=== PATIENT | female | born 1955 | race Caucasian/White ===

== ENCOUNTER 2024-04-23 11:03 | Inpatient (IN) | payer MEDICARE, SELFPAY ==
[2024-04-23] VITALS (27 sets, daily range): BP systolic 93–177; BP diastolic 11–100; PULSE 63–87; RESP 10–21; TEMP 36.4–36.9; O2SAT 95–100; BMI 22.8
--- NOTE | ~2024-04-23 | CT_ITS ---
EXAMINATION: CT brain wo con DATE: 04/23/2024 12:48 INDICATION: Head injury. Loss of consciousness. TECHNIQUE: Computed tomography (CT) of the head was performed without intravenous contrast. The mA wa s adjusted according to patient size. Iterative reconstruction technique was employed. The dose-lengt h product was 605.33 mGy-cm. COMPARISON: None FINDINGS: There is no intracranial hemorrhage, acute infarction, or abnormal intracranial mass lesion . The ventricles are normal in size. The orbits are normal. There is mucosal thickening in the parana branden sinuses. The mastoid air cells are normal. IMPRESSION: 1. Normal brain. Reviewed, dictated and finalized at location A. UCT DEVELOPMENT WORKER IMPRESSION: 1. Normal brain.
--- NOTE | ~2024-04-23 | XR_ITS ---
Clinical Indication: Cough PA and lateral views of the chest: Comparison: None Findings: The lungs are clear, without evidence of focal consolidation or pleural effusion. Cardiome diastinal silhouette is within normal limits. Bones and soft tissues are unremarkable. Impression: Normal chest. Reviewed, dictated and finalized at [facility]. TING PLATE SETTER Impression: Normal chest.
--- NOTE | ~2024-04-23 | CT_ITS ---
[facility] DATE: 04/23/2024 12:48 INDICATION: Chest and abdominal and spine injury. Fall. TECHNIQUE: Computed tomography (CT) of the chest, abdomen, pelvis, thoracic spine, and lumbar spine w as performed with 100 mL Omnipaque 350 intravenous contrast. Automated exposure control and iterative reconstruction technique were employed. The dose-length product was 414.07 mGy-cm. COMPARISON: Chest CT 12/03/2013 FINDINGS: CT CHEST: There is mild atelectasis bilaterally. No pleural effusion. The heart size is normal. No pe ricardial effusion. CT ABDOMEN AND PELVIS: The liver, gallbladder, spleen, pancreas, adrenal glands, and right kidney are normal. There is a 4 mm cyst in left kidney. There are no dilated loops of bowel. The appendix is no rmal. There are no pathologically enlarged lymph nodes. There is no free intraperitoneal fluid. CT THORACIC SPINE: There is 4 degrees dextrocurvature of thoracic spine. There is mild chronic anteri or wedging of T5-T8 vertebral bodies. There is moderately decreased disc height from T2-T3 through T6 -T7 and mildly decreased disc height at T7-T8 and T8-T9. There is multilevel facet joint osteoarthrit is, severe on the left from T1-T2 through T3-T4 and on the right at T4-T5. On the right, there is mil d neural foraminal stenosis at T4-T5. On the left, there is mild neural foraminal stenosis at T1-T2, T2-T3, and T3-T4. There is mild central canal stenosis at T6-T7 and T11-T12. CT LUMBAR SPINE: There is 2 mm retrolisthesis of L2 on L3. Vertebral body heights are normal. There i s moderately decreased disc height at L2-L3, mildly decreased disc height at L4-L5, and severely decr eased disc height at L5-S1. The following disc levels are specifically discussed: L1-L2: The disc does not extend beyond the endplate margin. There is moderate bilateral facet joint o steoarthritis. There is no neural foraminal stenosis. There is no central canal stenosis. L2-L3: The disc is bulging. There is mild bilateral facet joint osteoarthritis. There is mild bilater al neural foraminal stenosis. There is mild central canal stenosis. L3-L4: The disc is bulging. There is moderate right and severe left facet joint osteoarthritis. There is mild bilateral neural foraminal stenosis. There is mild central canal stenosis. L4-L5: The disc is bulging. There is severe bilateral facet joint osteoarthritis. There is mild bilat eral neural foraminal stenosis. There is mild central canal stenosis. L5-S1: The disc is bulging. There is severe bilateral facet joint osteoarthritis. There is mild bilat eral neural foraminal stenosis. There is mild central canal stenosis. IMPRESSION: 1. No posttraumatic findings. Reviewed, dictated and finalized at location A. IRATORY TECHNICIAN
--- NOTE | ~2024-04-23 | XR_ITS ---
Left wrist Technique: PA, oblique, lateral, and ulnar deviation views were obtained. Clinical History: Pain Findings: No acute fracture or dislocation is seen. Osseous alignment is anatomic. There is mild dege nerative change of the first CMC joint. Soft tissues are unremarkable. 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 Reviewed, dictated and finalized at [facility]. MAKER Impression: Mild degenerative change of the first CMC joint.
--- NOTE | ~2024-04-23 | XR_ITS ---
Right elbow Technique: AP, oblique, and lateral views were obtained. Clinical History: Pain Findings: No acute fracture or dislocation is seen. Osseous alignment is anatomic. Joint spaces are p reserved. There is no displacement of the fat pads, and soft tissues are unremarkable. Impression: Unremarkable radiographs. Reviewed, dictated and finalized at [facility]. CHELL OPERATOR Impression: Unremarkable radiographs.
--- NOTE | ~2024-04-23 | XR_ITS ---
Right wrist Technique: PA, oblique, lateral, and ulnar deviation views were obtained. Clinical History: Pain Findings: No acute fracture or dislocation is seen. Osseous alignment is anatomic. There is mild dege nerative change of the first CMC joint. Soft tissues are unremarkable. 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 Reviewed, dictated and finalized at [facility]. BRAZER Impression: Mild degenerative change of the first CMC joint.
--- NOTE | ~2024-04-23 | CT_ITS ---
EXAMINATION: CT cervical spine wo con DATE: 04/23/2024 12:48 INDICATION: Head injury. Neck pain. TECHNIQUE: Computed tomography (CT) of the cervical spine was performed without intravenous contrast. Automated exposure control and iterative reconstruction technique were employed. The dose-length pro duct was 127.47 mGy-cm. COMPARISON: None FINDINGS: There is kyphosis of cervical spine. Vertebral body heights are normal. There is severely d ecreased disc height from C4-C5 through C6-C7. The following disc levels are specifically discussed: C2-C3: There is no uncovertebral joint osteoarthritis. There is severe bilateral facet joint osteoart hritis. There is mild left neural foraminal stenosis. There is no central canal stenosis. C3-C4: There is moderate left uncovertebral joint osteoarthritis. There is moderate right and severe left facet joint osteoarthritis. There is mild left neural foraminal stenosis. There is no central ca nal stenosis. C4-C5: There is severe right and mild left uncovertebral joint osteoarthritis. There is severe bilate ral facet joint osteoarthritis. There is mild bilateral neural foraminal stenosis. There is moderate central canal stenosis. C5-C6: There is severe bilateral uncovertebral joint osteoarthritis. There is mild bilateral facet joshua int osteoarthritis. There is mild bilateral neural foraminal stenosis. There is mild central canal st enosis. C6-C7: There is severe bilateral uncovertebral joint osteoarthritis. There is moderate bilateral face t joint osteoarthritis. There is mild bilateral neural foraminal stenosis. There is moderate central canal stenosis. C7-T1: There is no uncovertebral joint osteoarthritis. There is severe bilateral facet joint osteoart hritis. There is mild bilateral neural foraminal stenosis. There is no central canal stenosis. IMPRESSION: 1. No fracture. 2. Severe cervical spondylosis. Reviewed, dictated and finalized at location A. [employer]
--- NOTE | 2024-04-23 11:24 | ECG_ITS ---
Test Date: 2024-04-23 11:53:59 Measurements Intervals [place] Rate: 65 P: 23 UT: 144 QRS: 33 QRSD: 94 T: 43 QT: 380 QTc: 398 Interpretive Statements SINUS RHYTHM CANNOT R/O SEPTAL INFARCT, AGE INDETERMINATE BORDERLINE ST ABNORMALITY- LAT/HIGH LAT LEADS ABNORMAL ECG No previous ECG available for comparison Electronically Signed On 04-23-2024 13:29:42 ELECTRICAL PANEL BUILDER by Fernando Aggarwal D.O.
--- NOTE | 2024-04-23 11:45 | ED.SYNCOPE ---
HPI - Syncope General Chief Complaint: Arrhythmia/Palpitations <Xin Donaldson APRN - Last Filed: 04/23/24 11:52> Stated Complaint: afib <Xin Donaldson APRN - Last Filed: 04/23/24 11:52> Time Seen by Provider: 04/23/24 11:30 <Xin Donaldson APRN - Last Filed: 04/23/24 11:52> Focused HPI: Patient is a 68-year-old female who presents to the ER after sustaining a fall while on a trip to [place]. She reports she is on Xarelto due to history of AFib. Patient reports she arrived in [place] and was not feeling well with symptoms including headache and cough. She reports on Sunday 3 days ago, she got into the shower, had diarrhea, and experienced loss of consciousness. Patient is unsure how long she was altered. She reports her found her in the shower and had her evaluated by a doctor, where she lost consciousness again so she was sent to an ER in [place]. Patient reports she was diagnosed with influenza. She denies any alcohol or illicit drug use down in [place]. Patient brought her medical records with her to this ER visit although they are transcribed in Greenlandic. Patient endorses right elbow pain right arm pain and generalized body aches. She also endorses bruising all over her body including on to the left side of her face. Patient denies any recent fevers, one-sided weakness/tingling/numbness, vaginal or rectal bleeding. She does endorse altered mental status and difficulty with her memory since Sunday. Patient also endorses decreased coordination on her right extremity. She reports ?I have pain everywhere.? GENERAL: Ill-appearing, poorly-nourished, and in no acute distress. HEAD: Normocephalic, ecchymosis to left side of patient's face. CHEST: Clear to auscultation. ?No respiratory distress. HEART: Regular rate and rhythm.? NEURO: ?Alert and oriented x3. Cranial nerves intact, although increased weakness on right arm with neuro checks. ABD: + BS, no tenderness with palpation Patient screened in triage and initial orders placed.? ?Additional care and disposition to be based upon?diagnostic testing and treatment. <Xin Donaldson APRN - Last Filed: 04/23/24 11:52> Related Data Home Medications: Home Medications ?Medication ?Instructions ?Recorded ?Confirmed ?Last Taken ?Type rivaroxaban 20 mg tablet (Xarelto) mg 04/23/24 Unknown History <Xin Donaldson APRN - Last Filed: 04/23/24 11:52> Allergies/Adverse Reactions: Allergies Allergy/AdvReac Type Severity Reaction Status Date / Time No Known Allergies Allergy Unverified 04/23/24 11:47 <Xin Donaldson APRN - Last Filed: 04/23/24 11:52> Exam Narrative: APPEARANCE: No apparent distress. Head: Old bruising over the left orbit EYES: EOMI, NOSE: Atraumatic NECK: Trachea midline RESPIRATORY: No increased rate of breathing CTAB CARDIOVASCULAR: RRR, no peripheral edema ABDOMINAL: Non-distended soft nontender MUSCULOSKELETAl: No obvious deformities NEURO: Cranial nerves 2-12 grossly intact. Sensation light touch, motor function cerebellar function intact for 4 extremities. Patient is globally weak SKIN:: Warm, dry. Normal color PSYCHIATRIC: Normal affect <Azael Scott MD - Last Filed: 04/23/24 16:37> Course Vital Signs Vital signs: Vital Signs Temperature 97.6 F 04/23/24 11:12 Pulse Rate 87 04/23/24 11:12 Respiratory Rate 16 04/23/24 11:12 Blood Pressure 167/82 H 04/23/24 11:12 Pulse Oximetry 98 04/23/24 11:12 Temperature 97.6 F 04/23/24 11:12 Pulse Rate 78 04/23/24 15:31 Respiratory Rate 15 04/23/24 15:31 Blood Pressure 171/94 H 04/23/24 15:31 Pulse Oximetry 100 04/23/24 15:31 <Xin Donaldson APRN - Last Filed: 04/23/24 11:52> Vital Signs Temperature 97.6 F 04/23/24 11:12 Pulse Rate 87 04/23/24 11:12 Respiratory Rate 16 04/23/24 11:12 Blood Pressure 167/82 H 04/23/24 11:12 Pulse Oximetry 98 04/23/24 11:12 Temperature 97.6 F 04/23/24 11:12 Pulse Rate 78 04/23/24 15:31 Respiratory Rate 15 04/23/24 15:31 Blood Pressure 171/94 H 04/23/24 15:31 Pulse Oximetry 100 04/23/24 15:31 <Azael Scott MD - Last Filed: 04/23/24 16:37> MDM - Syncope MDM Narrative Medical decision making narrative: -Course: 68-year-old female presenting 3 days after a fall that she sustained in [place]. Physical exam not show any traumatic injuries. She is globally weak with an unsteady gait. Broad workup obtained which was unremarkable outside of positive of influenza infection. Patient was given fluid resuscitation and NSAIDs for her symptoms. After the patient was fluid resuscitated we attempted to ambulate patient and when she stood up she became pale and lightheaded. Patient will be continued fluid resuscitation and PT OT evaluation. -DDX includes but is not limited to: Influenza, dehydration, pneumonia, sepsis, acute kidney injury -Independent interpretation of studies: Independent EKG interpretation: Rhythm [sinus], Rate [65], [place] -[normal], MI -[normal], QRS [narrow], QTC [normal], T waves -[negative for concerning inversions], ST Segments - [Negative for concerning elevations] Final interpretations: [Normal Sinus Rhythm] <Azael Scott MD - Last Filed: 04/23/24 16:37> Lab Data Result diagrams: 04/23/24 12:01 04/23/24 12:01 <Xin Donaldson APRN - Last Filed: 04/23/24 11:52> Labs: Lab Results 04/23/24 04/23/24 Range/Units 12:01 12:19 WBC 3.7 L (4.5-10.0) K/mm3 RBC 4.87 (4.2-5.4) M/mm3 Hgb 15.1 H (12.0-15.0) g/dL Hct 44.9 (37.0-47.0) % MCV 92.2 (80-100) fl MCH 31.0 (26-34) pg MCHC 33.6 (32-36) g/dl RDW 13.2 (11.5-14.5) % Plt Count 192 (150-375) k/mm3 MPV 11.3 H (7.4-10.4) fl Immature Gran % (Auto) 0.3 (0-0.5) % Neut % (Auto) 31.3 L (45.5-73.1) % Lymph % (Auto) 58.9 H (18.3-44.2) % [place] % (Auto) 8.7 H (2.6-8.5) % Eos % (Auto) 0.3 (0-4.4) % Baso % (Auto) 0.5 (0.2-1.2) % Lymph # (Auto) 2.16 (0.9-3.2) K/mm3 [place] # (Auto) 0.3 (0.1-0.6) K/mm3 Eos # (Auto) 0.0 (0-0.3) K/mm3 Baso # (Auto) 0.0 (0.0-0.1) K/mm3 Abs Immat Gran (auto) 0.01 (0.00-0.031) K/mm3 Absolute Neuts (auto) 1.2 L (1.3-6.7) K/mm3 Absolute Nucleated RBC 0.000 (0.0-0.012) K/mm3 Nucleated RBC % 0.0 (0.0-0.2) % Atypical Lymphocytes Present Platelet Estimate Adequate (Adequate) Schistocytes None seen PT 13.1 (11.1-14.7) Seconds INR 1.0 APTT 27.4 (22.3-36.8) Seconds Sodium 134 L (137-145) mmol/L Potassium 3.7 (3.4-5.0) mmol/L Chloride 98 (98-107) mmol/L Carbon Dioxide 28 (22-30) mmol/L Anion Gap 8 (4-12) mmol/L BUN 23 H (7-17) mg/dL Creatinine 0.62 L (0.7-1.0) mg/dL Estim Creat Clear Calc Not Reportable Estimated GFR > 60 (59 - ) Glucose 106 (65-110) mg/dL Lactic Acid 1.1 (0.7-2.0) mmol/L Calcium 9.3 (8.4-10.2) mg/dL Total Bilirubin 0.5 (0.2-1.3) mg/dL AST 32 (14-36) U/L ALT 38 H (6-35) U/L Alkaline Phosphatase 79 (38-126) U/L Total Creatine Kinase 52 (30-135) U/L Troponin I < 0.012 (0.000-0.034) ng/mL Total Protein 7.0 (6.3-8.2) g/dL Albumin 4.0 (3.5-5.1) g/dL TSH 1.070 (0.465-4.680) uIU/mL Urine Color Yellow (Yellow) Urine Appearance Clear (Clear) Urine pH 6.5 (5.0-9.0) Ur Specific [place] 1.021 (1.001-1.035) Urine Protein Trace (Negative) mg/dL Urine Glucose (UA) Negative (Negative) mg/dL Urine Ketones Trace H (Negative) mg/dL Ur Blood (Man) Negative (Negative) Urine Nitrate Negative (Negative) Urine Bilirubin Negative (Negative) Urine Urobilinogen 1.0 (<2.0) mg/dL Leukocyte Esterase Rfl Negative (Negative) JOSE/UL Urine RBC 0-2 (0-2) /hpf Urine WBC 0-5 (0-3) /hpf Ur Squamous Epith Cells None seen (Few) /hpf Urine Bacteria None seen /hpf Urine Casts 0-2 Urine Opiates Screen Negative (Negative) Urine Methadone Screen Negative (Negative) Ur Barbiturates Screen Negative (Negative) Ur Phencyclidine Scrn Negative (Negative) Ur Amphetamine Screen Negative (Negative) U Benzodiazepines Scrn Negative (Negative) Urine Cocaine Screen Negative (Negative) U Cannabinoids Screen Negative (Negative) Ethyl Alcohol < 10 (<10) mg/dL Influenza A (RT-PCR) Positive A (Negative) Influenza B (RT-PCR) Negative (Negative) RSV (RT-PCR) Negative (Negative) SARS-CoV-2 RNA (RT-PCR) Negative (Negative) Blood Type O Positive Antibody Screen Negative <Xin Donaldson, CONTENT DEVELOPMENT SPECIALIST - Last Filed: 04/23/24 11:52> Lab Results 04/23/24 04/23/24 Range/Units 12:01 12:19 WBC 3.7 L (4.5-10.0) K/mm3 RBC 4.87 (4.2-5.4) M/mm3 Hgb 15.1 H (12.0-15.0) g/dL Hct 44.9 (37.0-47.0) % MCV 92.2 (80-100) fl MCH 31.0 (26-34) pg MCHC 33.6 (32-36) g/dl RDW 13.2 (11.5-14.5) % Plt Count 192 (150-375) k/mm3 MPV 11.3 H (7.4-10.4) fl Immature Gran % (Auto) 0.3 (0-0.5) % Neut % (Auto) 31.3 L (45.5-73.1) % Lymph % (Auto) 58.9 H (18.3-44.2) % [place] % (Auto) 8.7 H (2.6-8.5) % Eos % (Auto) 0.3 (0-4.4) % Baso % (Auto) 0.5 (0.2-1.2) % Lymph # (Auto) 2.16 (0.9-3.2) K/mm3 [place] # (Auto) 0.3 (0.1-0.6) K/mm3 Eos # (Auto) 0.0 (0-0.3) K/mm3 Baso # (Auto) 0.0 (0.0-0.1) K/mm3 Abs Immat Gran (auto) 0.01 (0.00-0.031) K/mm3 Absolute Neuts (auto) 1.2 L (1.3-6.7) K/mm3 Absolute Nucleated RBC 0.000 (0.0-0.012) K/mm3 Nucleated RBC % 0.0 (0.0-0.2) % Atypical Lymphocytes Present Platelet Estimate Adequate (Adequate) Schistocytes None seen PT 13.1 (11.1-14.7) Seconds INR 1.0 APTT 27.4 (22.3-36.8) Seconds Sodium 134 L (137-145) mmol/L Potassium 3.7 (3.4-5.0) mmol/L Chloride 98 (98-107) mmol/L Carbon Dioxide 28 (22-30) mmol/L Anion Gap 8 (4-12) mmol/L BUN 23 H (7-17) mg/dL Creatinine 0.62 L (0.7-1.0) mg/dL Estim Creat Clear Calc Not Reportable Estimated GFR > 60 (59 - ) Glucose 106 (65-110) mg/dL Lactic Acid 1.1 (0.7-2.0) mmol/L Calcium 9.3 (8.4-10.2) mg/dL Total Bilirubin 0.5 (0.2-1.3) mg/dL AST 32 (14-36) U/L ALT 38 H (6-35) U/L Alkaline Phosphatase 79 (38-126) U/L Total Creatine Kinase 52 (30-135) U/L Troponin I < 0.012 (0.000-0.034) ng/mL Total Protein 7.0 (6.3-8.2) g/dL Albumin 4.0 (3.5-5.1) g/dL TSH 1.070 (0.465-4.680) uIU/mL Urine Color Yellow (Yellow) Urine Appearance Clear (Clear) Urine pH 6.5 (5.0-9.0) Ur Specific [place] 1.021 (1.001-1.035) Urine Protein Trace (Negative) mg/dL Urine Glucose (UA) Negative (Negative) mg/dL Urine Ketones Trace H (Negative) mg/dL Ur Blood (Man) Negative (Negative) Urine Nitrate Negative (Negative) Urine Bilirubin Negative (Negative) Urine Urobilinogen 1.0 (<2.0) mg/dL Leukocyte Esterase Rfl Negative (Negative) JOSE/UL Urine RBC 0-2 (0-2) /hpf Urine WBC 0-5 (0-3) /hpf Ur Squamous Epith Cells None seen (Few) /hpf Urine Bacteria None seen /hpf Urine Casts 0-2 Urine Opiates Screen Negative (Negative) Urine Methadone Screen Negative (Negative) Ur Barbiturates Screen Negative (Negative) Ur Phencyclidine Scrn Negative (Negative) Ur Amphetamine Screen Negative (Negative) U Benzodiazepines Scrn Negative (Negative) Urine Cocaine Screen Negative (Negative) U Cannabinoids Screen Negative (Negative) Ethyl Alcohol < 10 (<10) mg/dL Influenza A (RT-PCR) Positive A (Negative) Influenza B (RT-PCR) Negative (Negative) RSV (RT-PCR) Negative (Negative) SARS-CoV-2 RNA (RT-PCR) Negative (Negative) Blood Type O Positive Antibody Screen Negative <Azael Scott MD - Last Filed: 04/23/24 16:37> Discharge Plan Discharge Clinical Impression: Influenza, Unsteady gait <Xin Donaldson APRN - Last Filed: 04/23/24 11:52> Patient Disposition: Still a Patient <Xin Donaldson APRN - Last Filed: 04/23/24 11:52> Condition: Stable <Xin Donaldson APRN - Last Filed: 04/23/24 11:52> Patient Language: Turkmen <Xin Donaldson APRN - Last Filed: 04/23/24 11:52> Prescriptions: No Action Xarelto 20 mg tablet <Xin Donaldson APRN - Last Filed: 04/23/24 11:52> Follow-up/Referrals: PHYSICIAN,RN LACTATION CONSULTANT [Non-Staff] - <Xin Donaldson APRN - Last Filed: 04/23/24 11:52>
[2024-04-23 12:08] LABS: Basophils Percent Auto 0.5 % (0.2-1.2); Eosinophils Percent Auto 0.3 % (0-4.4); Hematocrit 44.9 % (37.0-47.0); Hemoglobin 15.1 g/dL (12.0-15.0); Immature Granulocyte Absolute 0.01 K/mm3 (0.00-0.031); Immature Granulocyte Percent A 0.3 % (0-0.5); Lymphocytes Absolute Auto 2.16 K/mm3 (0.9-3.2); Lymphocytes Percent Auto 58.9 % (18.3-44.2); Mean Corpuscular HGB Conc 33.6 g/dl (32-36); Mean Corpuscular Volume 92.2 fl (80-100); Mean Platelet Volume 11.3 fl (7.4-10.4); Monocytes Absolute Auto 0.3 K/mm3 (0.1-0.6); Monocytes Percent Auto 8.7 % (2.6-8.5); Neutrophils Absolute Auto 1.2 K/mm3 (1.3-6.7); Neutrophils Percent Auto 31.3 % (45.5-73.1); Platelet Count Result 192 k/mm3 (150-375); Red Blood Count 4.87 M/mm3 (4.2-5.4); Red Cell Distribution Width 13.2 % (11.5-14.5); White Blood Count 3.7 K/mm3 (4.5-10.0)
[2024-04-23 12:19] LABS: Alanine Aminotransferase 38 U/L (6-35); Alkaline Phosphatase 79 U/L (38-126); Anion Gap 8 mmol/L (4-12); Aspartate Amino Transferase 32 U/L (14-36); Bilirubin,Total 0.5 mg/dL (0.2-1.3); Blood Urea Nitrogen 23 mg/dL (7-17); Calcium 9.3 mg/dL (8.4-10.2); Carbon Dioxide 28 mmol/L (22-30); Chloride 98 mmol/L (98-107); Creatine Kinase 52 U/L (30-135); Estimated Glomerular Filt Rate > 60; Ethanol < 10 mg/dL (<10); Glucose 106 mg/dL (65-110); Lactic Acid Reflex 1.1 mmol/L (0.7-2.0); Potassium 3.7 mmol/L (3.4-5.0); Prothrombin Time 13.1 Seconds (11.1-14.7); Sodium 134 mmol/L (137-145)
[2024-04-23 12:20] LABS: Partial Thromboplastin Time 27.4 Seconds (22.3-36.8)
[2024-04-23 12:31] LABS: Troponin I < 0.012 ng/mL (0.000-0.034)
[2024-04-23 12:37] LABS: Atypical Lymphocytes Present; Platelet Estimate Adequate (Adequate); Schistocytes None Seen
[2024-04-23 12:39] LABS: Add Urine Microscopic? YES; Appearance Urine Clear (Clear); Bacteria Urine None Seen /hpf; Bilirubin Urine Negative (Negative); Blood Urine Negative (Negative); Color Urine Yellow (Yellow); Glucose Urine UA Negative (Negative); Ketones Urine Trace mg/dL (Negative); Leukocyte Esterase Ur Negative LEU/UL (Negative); Nitrate Urine Negative (Negative); Non Pathogenic Casts 0-2; Protein Urine Trace mg/dL (Negative); RBC Urine 0-2 /hpf (0-2); Specific Grav Ur 1.021 (1.001-1.035); Squamous Epithelial Cell Urine None Seen /hpf (Few); WBC Urine 0-5 /hpf (0-3); pH Urine 6.5 (5.0-9.0)
--- OUTSIDE RECORDS SUMMARY | 2024-04-23 12:41 | XMS_ITS | Clinical Summary ---
Author Organization [facility] Address [address] [place] [address] Phone Care Team Providers Care Eastern Philosophy Professor Name Role Phone Danica Glasgow MD Primary Care Provider [phone] Social History Tobacco Use Types Packs/Day Years Used Date Smoking Tobacco: Never Assessed Comments No Sex and Gender Information Value Date Recorded Sex Assigned at Not on file Legal Sex Female 9:28 PM CDT Gender Identity Not on file Sexual Orientation Not on file Plan of Treatment Health Maintenance Due Date Last Done Comments Hepatitis C Virus (HCV) Screening 1955 Cologuard 10/02/2007 Pneumococcal Immunization (50+ years) (1 of 1 - PCV) 10/02/2007 Zoster Immunization (1 of 2) 10/02/2007 Immunochemical Fecal Occult Blood 08/17/2023 08/16/2022, 05/12/2020 Influenza Immunization (#1) 2023 01/22/2020, 1 03/26/2017 SARS-COV-2 Immunization ( season) 2023 02/15/2021, 06/25/2020, 05/21/2020 DEXA Bone Density 09/23/2025 09/24/2023, 01/17/2019 Mammogram 09/23/2025 09/24/2023, 0611/2022, 06/28/2021, Additional history exists Colonoscopy 01/06/2029 01/06/2019 Colorectal Cancer Screening 01/06/2029 Respiratory Syncytial Virus (RSV) Immunization (Adult) (1 - 1-dose 75+ series) 2032 01/06/2019 DTaP/Tdap/Td Immunization Discontinued 09/25/2019 TdaP Immunization Completed 09/25/2019 Hepatitis B Immunization Aged Out No longer eligible based on patient's age to complete this topic Meningococcal Immunization (ACWY) Aged Out No longer eligible based on patient's age to complete this topic Rotavirus Immunization Aged Out No lo nger eligible based on patient's age to complete this topic Procedures Procedure Name Priority Date/Time Associated Diagnosis Comments [facility] BONE DENSITOMETRY AXIAL SKELETON Routine 09/24/2023 9:40 AM CDT Asymptomatic menopausal state [facility] SCREENING BILATERAL DIGITAL W CAD W SANDIE Routine 09/24/2023 9:30 AM CDT Visit for screening mammogram from Last 3 Months or Most Recently Relevant to Health Maintenance Results * [facility] BONE DENSITOMETRY AXIAL SKELETON (09/24/2023 9:40 AM CDT) Anatomical Region Laterality Modality BODY N/A Computed Radiogr aphy 09/24/2023 5:06 PM CDT Impressions 09/24/2023 5:09 PM CDT IMPRESSION: Low Bone Mass. REFERENCE: Bone mineral density: T-Score: ?Normal (T-score above or = -1.0) ?Low bone mass ??(T-score between -1.0 and -2.5) replaces the previously used term osteopenia ?Osteoporosis (T-score = or below -2.5) Z-Score: ? Within the expected range for age (Z-score above -2.0) ? Below the expected range for age (Z-score is -2.0 or below) Please see below follow up recommendations. Medical evaluation for secondary causes of low bone mineral density may be appropriate. FRAX is a World Health Organization validated fracture risk assessment tool that calculates a person's 10 year probability of a major osteoporosis related fracture and hip fracture. ??According to the National Osteoporosis Foundation guidelines, postmenopausal women and men age 50 or older with low bone mass and a 10 year probability of a major osteoporosis related fracture = or greater than 20% or a 10 year probability of a hip fracture = or greater than 3% should be considered for pharmacological treatment for the prevention of osteoporosis. For further information, including treatment recommendations, please refer to the 2019 ISCD Official Positions (http://www.iscd.org) and the NOF's Clinician's Guide to Prevention and Treatment of Osteoporosis (http://www.nof.org/professionals/clinical-guidelines) Narrative 09/24/2023 5:09 PM CDT EXAM DESCRIPTION: [facility] BONE DENSITOMETRY AXIAL SKELETON REASON FOR STUDY: 67 y/o ?? year old ??F ??with given history of: ?? Asymptomatic menopausal state ? 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 Maximum height: ??64 ??inches ? Weight: ??121 ??pounds Risk factors: ??Postmenopausal COMPARISON: 01/17/2019 FINDINGS: AP LUMBAR SPINE L1-L4: Total BMD is 1.012 g/cm2 T-score is -1.5 This is decreased in comparison to prior exam which is statistically significant. LEFT HIP: Total BMD is 0.817 g/cm2 T-score is -1.5 This is decreased in comparison to prior exam which is statistically significant. Femoral neck BMD is 0.735 g/cm2 T-score is -2.2 ?? FRAX: 10 year risk for a major osteoporotic fracture is 11 %, 10 year risk for a hip fracture is 2.0 % THIS IS AN ELECTRONICALLY VERIFIED FINAL REPORT 09/24/2023 5:06 PM - Electronically signed by ??Alex Crow M.D. 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 LEFT HIP: Total BMD is 0.817 g/cm2 T-score is -1.5 This is decreased in comparison to prior exam which is statistically significant. Femoral neck BMD is 0.735 g/cm2 T-score is -2.2 FRAX: 10 year risk for a major osteoporotic fracture is 11 %, 10 year risk for a hip fracture is 2.0 % THIS IS AN ELECTRONICALLY VERIFIED FINAL REPORT 09/24/2023 5:06 PM - Electronically signed by Alex Crow M.D. MF: JOHN Report ID: [id number] Reading Location: [place] [id number] IMPRESSION: Low Bone Mass. REFERENCE: Bone mineral density: T-Score: Normal (T-score above or = -1.0) Low bone mass (T-score between -1.0 and -2.5) replaces the previously used term osteopenia Osteoporosis (T-score = or below -2.5) Z-Score: Within the expected range for age (Z-score above -2.0) Below the expected range for age (Z-score is -2.0 or below) Please see below follow up recommendations. Medical evaluation for secondary causes of low bone mineral density may be appropriate. FRAX is a World Health Organization validated fracture risk assessment tool that calculates a person's 10 year probability of a major osteoporosis related fracture and hip fracture. According to the National Osteoporosis Foundation guidelines, postmenopausal women and men age 50 or older with low bone mass and a 10 year probability of a major osteoporosis related fracture = or greater than 20% or a 10 year probability of a hip fracture = or greater than 3% should be considered for pharmacological treatment for the prevention of osteoporosis. For further information, including treatment recommendations, please refer to the 2019 ISCD Official Positions (http://www.iscd.org) and the NOF's Clinician's Guide to Prevention and Treatment of Osteoporosis (http://www.nof.org/professionals/clinical-guidelines) us Danica Glasgow MD IMG DEXA ORDERABLES Final Resul t * [facility] SCREENING BILATERAL DIGITAL W CAD W SANDIE (09/24/2023 9:30 AM CDT) Anatomical Region Laterality Modality breast Bilateral Mammography 09/24/2023 10:2 6 AM CDT Narrative 09/25/2023 10:58 AM CDT - [facility] SCREENING BILATERAL DIGITAL W CAD W SANDIE BILATERAL DIGITAL SCREENING MAMMOGRAM 3D/2D WITH CAD WITH MEDIOLATERAL OBLIQUE CRANIOCAUDAL: 09/24/2023 The study was acquired using digital technology and interpreted from soft copy. Current study was also evaluated with ICAD version 7.2. 2D digital mammographic views, as well as 3D digital tomosynthesis were performed in the CC and MLO projections. ?? CLINICAL: Routine screening. Patient has no complaints. No personal history of cancer. No family history of breast cancer. ?? COMPARISONS: Comparison is made to exams dated: ??09/14/2022, 06/28/2021, and 01/17/2019 [facility]. ?? BREAST TISSUE:There are scattered fibroglandular densities in both breasts. ?? FINDINGS: There are benign post operative findings in both breasts. ?? No significant masses, calcifications, or other findings are seen in either breast. ?? There has been no significant interval change. IMPRESSION: BI-RAD 2 BENIGN There is no mammographic evidence of malignancy. A 1 year screening mammogram is recommended. ?? A letter will be sent to the patient with these results. The patient will be entered into a reminder system with a target due date of 1 year for her next screening exam. Electronically signed by: Maribell Payan M.D. ? becky/cristiano:09/24/2023 22:31:01 ?? Hyperbaric Technologist(s): Mary ??RT Genaro(Whitley)(M), [facility] letter sent: Normal Exam ?? Reading location: [place] BI-RADS: 2 Benign Procedure Note Maribell Payan MD - 09/25/2023 - [facility] SCREENING BILATERAL DIGITAL W CAD W SANDIE BILATERAL DIGITAL SCREENING MAMMOGRAM 3D/2D WITH CAD WITH MEDIOLATERAL OBLIQUE CRANIOCAUDAL: 09/24/2023 The study was acquired using digital technology and interpreted from soft copy. Current study was also evaluated with ICAD version 7.2. 2D digital mammographic views, as well as 3D digital tomosynthesis were performed in the CC and MLO projections. CLINICAL: Routine screening. Patient has no complaints. No personal history of cancer. No family history of breast cancer. COMPARISONS: Comparison is made to exams dated: 09/14/2022, 06/28/2021, and 01/17/2019 [facility]. BREAST TISSUE:There are scattered fibroglandular densities in both breasts. FINDINGS: There are benign post operative findings in both breasts. No significant masses, calcifications, or other findings are seen in either breast. There has been no significant interval change. IMPRESSION: BI-RAD 2 BENIGN There is no mammographic evidence of malignancy. A 1 year screening mammogram is recommended. A letter will be sent to the patient with these results. The patient will be entered into a reminder system with a target due date of 1 year for her next screening exam. Electronically signed by: Maribell pena/cristiano:09/24/2023 22:31:01 Hyperbaric Technologist(s): RT Trice(R)(M), [facility] letter sent: Normal Exam Reading location: [place] BI-RADS: 2 Benign Natali Dunne APRN IMG MAMMO ORDERABLES Final Resu lt from Last 3 Months or Most Recently Relevant to Health Maintenance Insurance MEDICARE COMMERCIAL GENERIC Care Teams Eastern Philosophy Professor Relationship Specialty Start Date End Date Danica Glasgow MD [address] [place] [id number] PCP - General 08/22/17
--- OUTSIDE RECORDS SUMMARY | 2024-04-23 12:41 | XMS_ITS | Referral Summary ---
Author Organization [facility] Medical Office Building B Address [address] [place] [address] Care Team Providers Care Coil Maker Name Role Phone Danica Jackson MD Primary Care Provider Encounters Date Type Department Care Team Description 04/23/2024 Telephone [facility] Cardiology [address] [place] [address] Elvin Chris MD 02/11/2024 11:45 AM SESSIONS CLERK Office Visit [facility] Surgery [address] [place] [address] Elisha Abdul NP Trigger finger, left ring finger (Primary Dx); Tenosynovitis of hand from Last 3 Months Allergies No known active allergies Medications SUMAtriptan (IMITREX) 100 mg tablet take 1 tablet by oral route once with fluids as early as possible after the onset of a migraine attack;may repeat after 2 hours if headache returns, not to exceed 200mgin 24hrs 10 1 3 Active metoprolol XL (TOPROL-XL) 25 mg extended release tablet Take 1 tablet (25 mg total) by mouth daily 3 Active rivaroxaban (XARELTO) 20 mg tablet Take 1 tablet (20 mg total) by mouth daily with dinner Active magnesium oxide 400 mg magnesium capsule Take 400 mg by mouth daily 90 capsule 3 Active hydroCHLOROthiazi de (HYDRODIURIL) 25 mg tabletIndications :Benign essential hypertension Take 1 tablet (25 mg total) by mouth daily 90 tablet 3 4 Active lisinopriL (PRINIVIL,ZESTRIL ) 20 mg tablet Take 1 tablet (20 mg total) by mouth daily 90 tablet 3 4 Active oxyBUTYnin XL (DITROPAN-XL) 10 mg 24 hr tablet Take 1 tablet (10 mg total) by mouth daily 90 tablet 3 4 Active nystatin ointmentIndicatio ns:cutaneous candidiasis Apply topically 3 (three) times a day 30 g 1 4 Active triamcinolone (KENALOG) 0.1 % ointmentIndicatio ns:Skin Inflammation Apply topically 3 (three) times a day 30 g 1 4 Active fluconazole (DIFLUCAN) 200 mg tabletIndications :Skin/Soft Tissue Infection One by mouth every other day for three doses. 3 tablet 4 Active Active Problems Problem Noted Date Diagnosed Date Personal history of colonic polyps 09/19/2023 Encounter for screening colonoscopy 09/19/2023 Atrial fibrillation (CMS/HCC) 10/25/2022 Chronic anticoagulation 10/25/2022 Hypersomnolence 10/25/2022 Other fatigue 10/25/2022 MONTANO (dyspnea on exertion) 10/25/2022 Screen for colon cancer 11/11/2018 Overview (11/11/2018): Added automatically from request for surgery [id number] Benign essential hypertension 08/09/2016 Trigger middle finger of right hand 03/29/2016 Urinary incontinence 08/02/2013 Overview (06/22/2016): Incontinence of urine Assessment & Plan (08/21/2023 12:00 PM CDT): Oxybutynin will be refilled. Patient doing well. 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 Overview (06/22/2016): Hyperactivity of bladder Hypertension 09/25/2012 Overview (06/23/2016): Hypertension Osteoarthritis 09/25/2012 Overview (06/22/2016): Osteoarthritis Migraine 09/25/2012 Overview (06/22/2016): Migraines Anxiety 09/11/2012 Overview (06/23/2016): Anxiety Torn cartilage 08/02/2012 Overview (06/23/2016): Torn meniscus Social History Tobacco Use Types Packs/Day Years Used Date Smoking Tobacco: Never Smokeless Tobacco: Never Alcohol Use Standard Drinks/Week Comments Yes 0 (1 standard drink = 0.6 oz pur e alcohol) social PHQ-2 Answer Date Recorded PHQ-2 Total Score (If total score is 3 or more points, staff should administer the PHQ-9) 0 08/21/2023 Comments No Sex and Gender Information Value Date Recorded Sex Assigned at Not on file Legal Sex Female 5:25 PM SESSIONS CLERK Gender Identity Not on file Sexual Orientation Not on file Last Filed Vital Signs Vital Sign Reading Time Taken Comments Blood Pressure 142/80 10/26/2023 9:42 AM CDT Pulse 60 10/16/2023 10:12 AM CDT Temperature 37.1 ??C (98.8 ??F) 01/06/2019 9:05 AM CD T Respiratory Rate 16 10/16/2023 10:12 AM CDT Oxygen Saturation 96% 04/10/2023 1:16 PM SESSIONS CLERK Inhaled Oxygen Concentration - - Weight 55.8 kg (123 lb) 10/26/2023 9:42 AM CDT Height 161.3 cm (5' 3.5 ) 10/16/2023 10:12 AM CD T Body Mass Index 21.45 10/16/2023 10:12 AM CDT Plan of Treatment Upcoming Encounters Date Type Department Care Team (Late st Contact Info) Description 06/25/2024 9:25 AM CDT Hospital Encounter [facility] [address] [place] [address] China Lopez MD [address] [place] [address] [address] 06/25/2024 9:25 AM CDT - 06/25/2024 9:55 AM CDT Surgery [facility] [address] [place] [address] China Lopez MD [address] [place] [address] [place] [address] COLONOSCOPY Scheduled Procedures Name Priority Associated Diagnoses Date/Ti me COLONOSCOPY Personal history of colonic polyps Encounter for screening colonoscopy 06/25/2024 9:25 AM CDT Procedures Procedure Name Priority Date/Time Associated Diagnosis Comments PAP AND HPV, REFLEX TO HPV GENOTYPES Routine 08/21/2023 12:22 PM CDT Encounter for gynecological examination with Papanicolaou smear of cervix MAMMOGRAPHY Schedule Routine, Read Routine (OP Routine) 06/28/2021 DEXA AXIAL SKELETON BONE DENSITY 1 OR MORE SITES Schedule Routine, Read Routine (OP Routine) 01/17/2019 COLONOSCOPY 01/06/2019 8:02 AM CDT from Last 3 Months or Most Recently Relevant to Health Maintenance Results * (ABNORMAL) Pap and HPV, reflex to HPV Genotypes (08/21/2023 12:22 PM CDT) CLINICAL INFORMATION: [facility] Comment:SCREENING LMP [facility] Comment:UNKNOWN Previous Pap [facility] Comment:NONE GIVEN Prev. Bx [facility] Comment:NONE GIVEN SOURCE: [facility] Comment:Cervix, Endocervix Pap, specimen adequacy [facility] Comment:SATISFACTORY FOR FAUSTINO LUATION HPV interp [facility] Comment: Cytology Results: Negative for intraepithelial lesion or malignancy. Atrophic pattern; predominantly parabasal cells COMMENTS [facility] Comment: This Pap test has been evaluated with computer assisted technology. Dye Boarding Machine Operator [facility] Comment: PCM, CT(ASCP) CT Screening Location: [facility] [address] [address] [place] [address] Review loader technician [facility] Comment: LMT, CT(ASCP) CT screening location: [place] [address] [address] [address] Comment [facility] Comment: EXPLANATORY NOTE: The Pap is a screening test for cervical cancer. It is not a diagnostic test and is subject to false negative and false positive results. It is most reliable when a satisfactory sample, regularly obtained, is submitted with relevant clinical findings and history, and when the Pap result is evaluated along with historic and current clinical information. Human papillomavirus DNA, High Risk E6/E7 Detected (A) NOT DETECTED [facility] Comment: Detected One or more High Risk HPV types (16,18,31,33, 35,39,45,51,52,56,58,59,66,68) was detected. Methodology: Real Time PCR ? Thin prep 08/21/2023 12:2 2 PM CDT 08/22/2023 4:49 AM CDT Natali Dunne NP LAB CYTOLOGY ORDERABLES Final Re sult [facility] [address] [address] [place] [address] [facility] [address] [facility] [address] [place] [address] * MAMMOGRAPHY (06/28/2021) Anatomical Region Laterality Modality Breast Mammography Gaby Mello NP IMG MAMMO PROCEDURES Faby l Result * Dexa Axial Skeleton Bone Density 1 or 2 Site (01/17/2019) Anatomical Region Laterality Modality Body N/A Radiographic Anne ging Gaby Mello NP IMG DXA PROCEDURES Final Result * COLONOSCOPY (01/06/2019 8:02 AM CDT) Anatomical Region Laterality Modality Other Narrative Procedure Note China Lopez MD - 01/06/2019 8:02 AM CDT [facility] Patient Name: Melina Krishnan Procedure Date: 01/06/2019 8:02 AM Date of : 1955 Admit Type: Outpatient Age: 63 Gender: Female Attending MD: China Lopez M.D. Room: [facility] ENDOSCOPY ROOM 1 Note Status: Finalized Patient Profile: This is a 63 year old female. No family history of colon cancer. Patient has history of adenoma polyps5 years ago. Procedure: Colonoscopy Indications: Surveillance: Personal history of adenomatous polypson last colonoscopy 5 years ago Referring MD: Danica Duncan MD Providers: hCina Lopez M.D. Impression: - The entire examined colon is normal. - None specific erythematous mucosa in the sigmoid colon and rectum. Biopsied. - Internal hemorrhoids. Recommendation: - Await pathology results. - Repeat colonoscopy in 5 years for screeningpurposes. Medicines: Monitored Anesthesia Care Complications: No immediate complications. Estimated Blood Loss: Estimated blood loss: none. Procedure: Pre-Anesthesia Assessment: - Prior to the procedure, a History and Physical was performed, and patient medications and allergieswere reviewed. The patient's tolerance of previous anesthesia was also reviewed. The risks and benefitsof the procedure and the sedation options and riskswere discussed with the patient. All questions were answered, and informed consent was obtained. Prior Anticoagulants: The patient has taken no previous anticoagulant or antiplatelet agents. ASA Grade Assessment: II - A patient with mild systemicdisease. After reviewing the risks and benefits, the patientwas deemed in satisfactory condition to undergo the procedure. The benefits, risks and alternatives of theprocedure and sedation were discussed and informed consent was obtained. All questions were answered. Please referto the signed informed consent document in the medical record. The bowel preparation used was Miralax.Bowel prep was administered using a split dose. The scopewas passed under direct vision. The PediatricColonoscope PCF-H190L [id number] was introduced through the anusand advanced to the the cecum, identified by appendiceal orifice and ileocecal valve. The quality of thebowel preparation was good. Findings: The perianal and digital rectal examinations were normal. The cecum appeared normal. The colon (entire examined portion) appeared normal. No polyps and no mass lesions noted. A diffuse area of mildly erythematous mucosa was found in the sigmoid colon and rectum. Clinically she has no symptoms. This may represent mild occult colitis. Noted she had the same finding about 5 years agoat the time and biopsy was benign and then. This was biopsied with acold forceps for histology. Internal hemorrhoids were found during retroflexion. The hemorrhoids were small. Electronically signed by China Lopez M.D. China Lopez M.D. 01/06/2019 8:44:42 AM Number of Addenda: 0 Note Initiated On: 01/06/2019 8:02 AM Procedure Code(s): --- Professional --- 80864, Colonoscopy, flexible; with biopsy, single or multiple Diagnosis Code(s): --- Professional --- Z86.010, Personal history of colonic polyps K64.8, Other hemorrhoids K63.89, Other specified diseases of intestine CPT copyright 2017 [employer]. All rights reserved. The codes documented in this report are preliminary and upon label coder reviewmay be revised to meet current compliance requirements. Recognized by the [place] [employer] for promoting quality in endoscopy China Lopez MD ENDOSCOPY PROCEDURES Final Result from Last 3 Months or Most Recently Relevant to Health Maintenance Additional Health Concerns Infection Onset Date Last Indicated C. difficile Comment:Germ watcher auto flagging 01/01/2014 01/01/2014 Insurance MEDICARE COMMERCIAL GENERIC MEDICARE COMMERCIAL GENERIC MEDICARE COMMERCIAL GENERIC Advance Directives For more information, please contact: [phone] * Full Code (Latest Code Status on File) Date Activated Date Inactivated Comments 01/06/2019 7:38 AM 01/06/2019 1:33 PM * Full Code Date Activated Date Inactivated Comments 01/06/2019 7:38 AM 01/06/2019 7:38 AM Care Teams Coil Maker Relationship Specialty Start Date End Date Danica Jackson MD [address] [place] [address] PCP - General Family Medicine 01/17/17
--- OUTSIDE RECORDS SUMMARY | 2024-04-23 12:41 | XMS_ITS | Clinical Summary ---
Author Organization [facility] Medical Office Building B Address [address] [place] [address] Care Team Providers Care Freight Car Inspector Name Role Phone Danica Jackson MD Primary Care Provider Allergies No known active allergies Medications SUMAtriptan [...] (11/11/2018): Added automatically from request for surgery [id number] Benign essential hypertension 08/09/2016 Trigger middle finger [...] Torn cartilage 08/02/2012 Overview (06/23/2016): Torn meniscus Encounters Date Type Department Care Team Description 04/23/2024 Telephone [facility] Cardiology [address] [place] [address] Elvin Chris MD 02/11/2024 11:45 AM ALODIZE MACHINE HELPER Office Visit [facility] Surgery [address] [facility] [address] [place] [address] Elisha Abdul NP Trigger finger, left ring finger (Primary Dx); Tenosynovitis of hand from Last 3 Months Surgical History Surgery Date Site/Laterality Comments TONSILLECTOMY 03/19/1959 - 03/18/1960 Tonsillectomy TUBAL LIGATION 03/19/1992 - 03/18/1993 Bilateral tubal ligation TUBAL LIGATION 03/19/1991 - 03/18/1992 Bilateral tubal ligation OTHER SURGICAL HISTORY 03/19/1997 - 03/18/1998 tubal pre OTHER SURGICAL HISTORY 03/19/1987 - 03/18/1988 oopherectomy left SECTION 03/19/1989 - 03/18/1990 OTHER SURGICAL HISTORY 03/19/1989 - 03/18/1990 : OTHER SURGICAL HISTORY 03/19/1991 - 03/18/1992 : OTHER SURGICAL HISTORY 03/19/2002 - 03/18/2003 breast lift LASIK LASIK REDUCTION MAMMAPLASTY 07/30/2018 Bilateral Medical History Medical History Date Comments Hypertension Hypertension Hx Other Medical 1989 ; Outc ome: 5 lb(s) 15 oz Female Hx Other Medical 1991 ; Outc ome: 7 lb(s) 9 oz Male Osteoarthritis Osteoarthritis Hx Other Medical Headache, migra ine Hypertension 2003 Hypertension Family History Medical History Relation Name Comments Arthritis Father Cary Blake Arthritis; Cancer Father Cary Blake Cancer; Prostate cancer Father Cary Blake Cancer, pr ostate; Heart disease Father's Brother Heart dise ase; Heart disease Maternal Grandfather Heart disease; Arthritis Mother Kathy Blake Arthritis; Bone cancer Mother Kathy Blake Bone cancer; Cancer Mother Kathy Blake Cancer; Hypertension Mother Kathy Blake Hypertension; Mitral valve prolapse Mother Kathy Blake Multi ple Myeloma; /Multiple myeloma; Other Mother Kathy Blake Vasculitis Dis ease; Heart disease Mother's Brother Heart dise ase; Lung cancer Mother's Sister Cancer, lung ; Osteoporosis Paternal Grandmother Osteopo rosis; Cancer Sister 3 Brandee Colunga Cancer; Arthritis Sister 4 Arthritis; Other Sister 5 Cancerous tumor on right kidney; Kidney cancer Sister 6 Cancer, kidney ; Relation Name Status Comments Father Cary Blake Alive Father's Brother Maternal Grandfather Mother Kathy Blake Alive Mother's Brother Mother's Sister Paternal Grandmother Alive Sister 1 Alive Sister 2 Alive Sister 3 Brandee Huitronich Sister 4 Sister 5 Sister 6 Social History Tobacco Use Types Packs/Day Years [...] on file Legal Sex Female 5:25 PM ALODIZE MACHINE HELPER Gender Identity Not on file Sexual Orientation Not on file Obstetrics History Para Term AB IAB SAB Ectopic Multiple Livin g Live Births 3 2 2 1 1 2 2 Date Outcome GA Total Labor Labor/2nd/3rd Weight Sex Type Anes PTL Elsie A1 A5 Name Clin 0 Term 2.693 kg (5 lb 15 oz) F CS-Un spec Living 2 Term 3.43 kg (7 lb 9 oz) M Vag-S pont Living 1997 Ectopic Last Filed Vital Signs Vital Sign Reading Time Taken Comments Blood Pressure 142/80 10/26/2023 9:42 AM CDT Pulse 60 10/16/2023 10:12 AM CDT Temperature 37.1 ??C (98.8 ??F) 01/06/2019 9:05 AM CD T Respiratory Rate 16 10/16/2023 10:12 AM CDT Oxygen Saturation 96% 04/10/2023 1:16 PM ALODIZE MACHINE HELPER Inhaled Oxygen Concentration - - Weight 55.8 kg (123 lb) 10/26/2023 9:42 AM CDT Height 161.3 cm (5' 3.5 ) 10/16/2023 10:12 AM CD T Body Mass Index 21.45 10/16/2023 10:12 AM CDT Plan of Treatment Upcoming Encounters Date Type Department Care Team (Late st Contact Info) Description 06/25/2024 9:25 AM CDT Hospital Encounter [facility] 1 [place] [address] China Lopez MD [address] [facility] [place] [address] 06/25/2024 9:25 AM CDT - 06/25/2024 9:55 AM CDT Surgery [facility] 1 [place] [address] China Lopez MD [address] [facility] [place] [address] COLONOSCOPY Scheduled Procedures Name Priority Associated Diagnoses Date/Ti me COLONOSCOPY Personal history of colonic polyps Encounter for screening colonoscopy 06/25/2024 9:25 AM CDT Health Maintenance Due Date Last Done Comments Fall Risk Assessment 1955 Hepatitis C Screening 1955 Hepatitis B Screening 10/02/1975 Zoster Vaccine (1 of 2) 10/02/2007 Pneumococcal vaccine 65+ (1 of 1 - PCV) 2022 Well Visit 65+ 08/17/2023 08/16/2022, 07/17, 05/12/2020, Additional history exists Influenza Vaccine (#1) 2023 01/22/2020, 2017 Depression Screening 08/20/2024 08/21/2023, 08/16/2022, 08/03/2021, Additional history exists Breast Cancer Screening-Mammogram 09/23/2024 09/24/2023, 09/24/2023, 09/14/2022, Additional history exists Osteoporosis Screening-Bone Density Scan 09/23/2025 09/24/2023, 09/24/2023, 01/17/2019, Additional history exists Colon Cancer Screening-Colonoscopy 01/06/2029 01/06/2019, 01/01/2014, 01/01/2014, Additional history exists DTaP/Tdap/Td Vaccine (2 - Td or Tdap) 09/24/2029 09/25/2019 Colon Cancer Screening-CT Colonography Discontinued 01/06/2019, 01/01/2014, 01/01/2014, Additional history exists Colon Cancer Screening-DNA Stool Discontinued 01/06/2019, 01/01/2014, 01/01/2014, Additional history exists Colon Cancer Screening-FIT Discontinued 01/06, 01/01/2014, 01/01/2014, Additional history exists Colon Cancer Screening-Sigmoidoscopy Discontinued 01/06/2019, 01/01/2014, 01/01/2014, Additional history exists Cervical Cancer Screening Discontinued 2023, 08/03/2021, 01/24/2019, Additional history exists Procedures Procedure Name Priority Date/Time Associated Diagnosis [...] Genotypes (08/21/2023 12:22 PM CDT) CLINICAL INFORMATION: [facility] Comment:SCREENING LMP [facility] Comment:UNKNOWN Previous Pap [facility] Comment:NONE GIVEN Prev. Bx [facility] Comment:NONE GIVEN SOURCE: [facility] Comment:Cervix, Endocervix Pap, specimen adequacy [facility] Comment:SATISFACTORY FOR FAUSTINO LUATION HPV interp [facility] Comment: Cytology Results: Negative for intraepithelial lesion or malignancy. Atrophic pattern; predominantly parabasal cells COMMENTS [facility] Comment: This Pap test has been evaluated with computer assisted technology. Merchandise Planning Manager [facility] Comment: PCM, CT(ASCP) CT Screening Location: [place] [address] [address] [place] [address] Review lay out drafter [facility] Comment: LMT, CT(ASCP) CT screening location: [place] [address] [address] [place] [address] Comment [facility] Comment: EXPLANATORY NOTE: The Pap is a [...] High Risk E6/E7 Detected (A) NOT DETECTED [facility] Comment: Detected One or more High Risk HPV types (16,18,31,33, 35,39,45,51,52,56,58,59,66,68) was detected. Methodology: Real Time PCR ? Thin prep 08/21/2023 12:2 2 PM CDT 08/22/2023 4:49 AM CDT Natali Dunne NP LAB CYTOLOGY ORDERABLES Final Re [facility]ult [facility] [address] [place] [address] [facility] [address] [facility] [place] [address] * MAMMOGRAPHY (06/28/2021) Anatomical Region Laterality Modality [...] Lopez MD - 01/06/2019 8:02 AM CDT [facility] Patient Name: Melina Krishnan Procedure Date: 01/06/2019 8:02 AM Date of : 1955 Admit Type: Outpatient Age: 63 Gender: Female Attending MD: Chian Lopez M.D. Room: [facility] ENDOSCOPY ROOM 1 Note Status: Finalized Patient Profile: This is a 63 year old female. No family history of colon cancer. Patient has history of adenoma polyps5 years ago. Procedure: Colonoscopy Indications: Surveillance: Personal history of adenomatous polypson last colonoscopy 5 years ago Referring MD: Danica Duncan MD Providers: China Lopez M.D. Impression: - The entire examined [...] passed under direct vision. The PediatricColonoscope PCF-H190L [id number] was introduced through the anusand advanced to [...] 8:02 AM Procedure Code(s): --- Professional --- 24540, Colonoscopy, flexible; with biopsy, single or multiple Diagnosis Code(s): --- Professional --- Z86.010, Personal history of colonic polyps K64.8, Other hemorrhoids K63.89, Other specified diseases of intestine CPT copyright 2017 [employer]. All rights reserved. The codes documented in this report are preliminary and upon senior compensation consultant reviewmay be revised to meet current compliance requirements. Recognized by the [employer] for promoting quality in endoscopy China Lopez MD ENDOSCOPY PROCEDURES Final Result from Last 3 Months or Most Recently Relevant to Health Maintenance Additional Health Concerns Infection Onset Date Last Indicated C. difficile Comment:Germ watcher auto flagging 01/01/2014 01/01/2014 Insurance MEDICARE COMMERCIAL GENERIC MEDICARE COMMERCIAL GENERIC MEDICARE COMMERCIAL GENERIC Advance Directives For more information, please contact: [phone] * Full Code (Latest Code Status on File) Date Activated Date Inactivated Comments 01/06/2019 7:38 AM 01/06/2019 1:33 PM * Full Code Date Activated Date Inactivated Comments 01/06/2019 7:38 AM 01/06/2019 7:38 AM Care Teams Freight Car Inspector Relationship Specialty Start Date End Date Danica Jackson MD [address] [place] [address] PCP - General Family Medicine 01/17/17
--- OUTSIDE RECORDS SUMMARY | 2024-04-23 12:41 | XMS_ITS | Encounter Summary ---
Author Organization [facility] Address [address] [place] [address] Care Team Providers Care Airline Ticket Agent Name Role Phone Moo Salazar MD Primary Care Provider [phone] Jeanmarie Silva DO Unavailable [phone] Encounter Details Date Type Department Care Team (Late st Contact Info) Description 07/12/2017 [facility] Outpatient Visit [facility] Orthopedics - Radiology [address] [place], [place] [id number] Jeanmarie Silva DO [address] [facility] [address] [place] [address] Social History Tobacco Use Types Packs/Day Years Used Date Smoking Tobacco: Never Assessed Sex and Gender Information Value Date Recorded Sex Assigned at Not on file Gender Identity Not on file Sexual Orientation Not on file documented as of this encounter Plan of Treatment Not on file documented as of this encounter Visit Diagnoses Not on filedocumented in this encounter Care Teams Airline Ticket Agent Relationship Specialty Start Date End Date Moo Salazar MD PCP - General Family Medicine 03/29/16 Jeanmarie Silva DO Hand Surgery 03/29/16 documented as of this encounter
--- OUTSIDE RECORDS SUMMARY | 2024-04-23 12:41 | XMS_ITS | Clinical Summary ---
Author Organization [facility] Address [address] [place] [address] Care Team Providers Care Professional Organizer Name Role Phone Moo Salazar MD Primary Care Provider [phone] Jeanmarie Silva DO Unavailable [phone] Source Comments [facility],non-owned Affiliates and Associated Physician Practices is amultiple site organization consisting of ambulatory clinics and hospital sitesin [place], [place], [place] and [place]. This disclosure is being madepursuant to the Care Everywhere program and may not contain all information available regarding this patient. Last updated 17.[facility] Allergies Active Allergy Reactions Criticality Noted Date Comments Adhesive Sensitivity Rash Medium 07/24/2017 Contact dermatitis Medications * Be aware that medications may not be up to date on this document. Alwaysverify current medications with the patient. Medication Sig Dispensed Refills Start Date End Date Status hydroCHLOROthiazide (HYDRODIURIL) 25 MG tablet Take 25 mg by mouth once daily 03/24/2016 Active oxybutynin CR 24hr (DITROPAN-XL) 10 MG tablet Take 10 mg by mouth once daily 03/24/2016 Active meloxicam (MOBIC) 15 MG tablet Take 15 mg by mouth once daily Active traMADol (ULTRAM) 50 MG tablet Take 1 tablet by mouth every 4 hours as needed for Pain 30 tablet 07/24/2017 Active Active Problems Problem Noted Date Diagnosed Date Trigger middle finger of right hand 03/29/2016 Social History Tobacco Use Types Packs/Day Years Used Date Smoking Tobacco: Never Smokeless Tobacco: Never Alcohol Use Standard Drinks/Week Comments Yes 0 (1 standard drink = 0.6 oz pur e alcohol) occ Sex and Gender Information Value Date Recorded Sex Assigned at Not on file Gender Identity Not on file Sexual Orientation Not on file Last Filed Vital Signs Vital Sign Reading Time Taken Comments Blood Pressure 150/97 07/24/2017 9:10 AM CDT Pulse 61 07/24/2017 9:10 AM CDT Temperature 36.4 ??C (97.6 ??F) 07/24/2017 8:47 AM C DT Respiratory Rate 13 07/24/2017 9:10 AM CDT Oxygen Saturation 96% 07/24/2017 9:10 AM CDT Inhaled Oxygen Concentration - - Weight 59.9 kg (132 lb) 07/24/2017 7:28 AM CDT Height 162.6 cm (5' 4 ) 07/24/2017 7:28 AM CDT Body Mass Index 22.66 07/24/2017 7:28 AM CDT Plan of Treatment Health Maintenance Due Date Last Done Comments BONE DENSITY TESTING 1955 COLOGUARD (AGES 45-75) - COL ON CA SCREENING 1955 COLON MONITORING 1955 COLONOSCOPY - COLON CA SCREENING 1955 CT COLONOGRAPHY - COLON CA SCREENING 1955 Colorectal Cancer Screening 1955 FIT - COLON CA SCREENING 1955 FLEX SIG - COLON CA SCREENING 1955 LIPID TESTING 1955 MAMMOGRAM 1955 HEPATITIS C SCREENING 09/27/1975 DTAP/TDAP/TD VACCINES (1 - Tdap) 1976 PNEUMOCOCCAL VACCINE 50+ (1 of 1 - PCV) 10/02/2007 ZOSTER VACCINE (1 of 2) 10/02/2007 COVID-19 VACCINE ( - 2023-2 5 season) 2023 INFLUENZA VACCINE (#1) 2023 DEPRESSION SCREENING 03/19/2024 Respiratory Syncytial Virus (RSV) Vaccine Pt: or over 60 yrs (1 - 1-dose 75+ series) 2032 HEPATITIS B VACCINE Aged Out No longe r eligible based on patient's age to complete this topic HIB VACCINE Aged Out No longer eligi ble based on patient's age to complete this topic HPV VACCINE Aged Out No longer eligi ble based on patient's age to complete this topic MENINGOCOCCAL (Group B) VACCINE Aged Out No longer eligible based on patient's age to complete this topic MENINGOCOCCAL VACCINE Aged Out No krysta pat eligible based on patient's age to complete this topic Care Teams Professional Organizer Relationship Specialty Start Date End Date Moo Salazar MD PCP - General Family Medicine 03/29/16 Jeanmarie Silva DO Hand Surgery 03/29/16
--- OUTSIDE RECORDS SUMMARY | 2024-04-23 12:41 | XMS_ITS | Encounter Summary ---
Author Organization [facility] Healthcare Address [address] [place] [address] Care Team Providers Care Seat Covers Trimmer Name Role Phone Danica Jackson MD Primary Care Provider Encounter Details Date Type Department Care Team (Late st Contact Info) Description 04/23/2024 Telephone [facility] Medical Group Cardiology [address] [facility] [address] [place] [address] Elvin Chris MD [address] [id number] Social History Tobacco Use Types Packs/Day Years [...] on file Legal Sex Female 5:25 PM CLIENT ENGAGEMENT SPECIALIST Gender Identity Not on file Sexual Orientation Not on file documented as of this encounter Miscellaneous Notes * Telephone Encounter - Kamryn Michael RN - 04/23/2024 10:41 AM CLIENT ENGAGEMENT SPECIALIST Noted, sent message to [facility]. NT ENGAGEMENT SPECIALIST * Telephone Encounter - Hannah Hernandes - 04/23/2024 10:30 AM CST Pt dtr Mally called to report pt was in [place] but is in [place] so she had to cut her trip short. States they are on the way to ED due to being in AFIB. Wants MAF to be aware. Contact: NT ENGAGEMENT SPECIALIST documented in this encounter Plan of Treatment Upcoming Encounters Date Type Department Care Team (Late st Contact Info) Description 06/25/2024 9:25 AM CDT Hospital Encounter [address] [address] China Lopez MD [address] [facility] [address] [place] [address] 06/25/2024 9:25 AM CDT - 06/25/2024 9:55 AM CDT Surgery [address] [address] China Lopez MD [address] [facility] [address] [place] [address] COLONOSCOPY Scheduled Procedures Name Priority Associated Diagnoses Date/Ti me COLONOSCOPY Personal history of colonic polyps Encounter for screening colonoscopy 06/25/2024 9:25 AM CDT documented as of this encounter Visit Diagnoses Not on filedocumented in this encounter Additional Health Concerns Infection Onset Date Last Indicated Resolved Time C. difficile Comment:Germ watcher auto flagging 01/01/2014 01/01/2014 documented as of this encounter Care Teams Seat Covers Trimmer Relationship Specialty Start Date End Date Danica Jackson MD [address] [place] [address] PCP - General Family Medicine 01/17/17 documented as of this encounter
--- OUTSIDE RECORDS SUMMARY | 2024-04-23 12:42 | XMS_ITS | Patient Health Summary ---
Author Organization [facility] Address [address] [place] [address] Care Team Providers Care Commercial Loan Assistant Name Role Phone Moo Salazar MD Primary Care Provider [phone] Jeanmarie Silva DO Unavailable [phone] Note from [facility],non-owned Affiliates and Associated Physician Practices is amultiple site organization consisting of ambulatory clinics and hospital sitesin [place], [place], [place] and [place]. This disclosure is being madepursuant to the Care Everywhere program and may not contain all information available regarding this patient. Last updated 17.[facility] Allergies * Adhesive Sensitivity(Rash) -Medium Criticality Medications * Be aware that medications may not be up to date on this document. Alwaysverify current medications with the patient. * hydroCHLOROthiazide (HYDRODIURIL) 25 MG tablet(Started 03/24/2016) Take 25 mg by mouth once daily * oxybutynin CR 24hr (DITROPAN-XL) 10 MG tablet(Started 03/24/2016) Take 10 mg by mouth once daily * meloxicam (MOBIC) 15 MG tablet Take 15 mg by mouth once daily * traMADol (ULTRAM) 50 MG tablet(Started 07/24/2017) Take 1 tablet by mouth every 4 hours as needed for Pain Active Problems Problem Noted Date Diagnosed Date [...] 36.4 ??C (97.6 ??F) 07/24/2017 8:47 AM CD T Respiratory Rate 13 07/24/2017 9:10 AM CDT Oxygen Saturation 96% 07/24/2017 9:10 AM CDT Inhaled Oxygen Concentration - - Weight 59.9 kg (132 lb) 07/24/2017 7:28 AM CDT Height 162.6 cm (5' 4 ) 07/24/2017 7:28 AM CDT Body Mass Index 22.66 07/24/2017 7:28 AM CDT Procedures * [place] Block(Performed 07/24/2017) * RELEASE TRIGGER FINGER (TENDON SHEATH)(Performed 07/24/2017) Performed for Trigger finger, right middle finger * XR WRIST RIGHT 3VW OR MORE(Performed 07/11/2017) Performed for Arthralgia of right wrist Results * ANESTHESIA BLOCK PERF (07/24/2017 2:43 PM CDT) Narrative Denice Mars, - 07/24/2017 2:43 PM CDT Brandi Holland APRN-ERGONOMICS TECHNICIAN ? 07/24/2017 ??8:24 AM [place] Block: ? Patient Location: OR. Procedure: ??[place] Block Pre Procedure Section: ?? Indications: ??surgical anesthesia Pre-Anesthetic Checklist: ??Patient identified, Site examined, Surgical consent verified, Pre-op evaluation done, Informed consent obtained, Allergies reviewed, IV Checked, Risks and benefits discussed, Monitors and equipment, Time-out performed and Questions answered/anesthesia questions answered Patient Position: ??supine Laterality: ??right Monitors: ??BP, continuous pluse ox, EKG and End tidal CO2 Patient Sedated? ??Sedation given ? Sedation Types: mild. ? Sedation Agents: versed ??fentanyl. Block IV already in place: ??yes Procedure: ? Tourniquet: ??single Inflation Pressure: ??250 Arm Exsanguinated: ??yes Tourniquet Inflated: ??yes Pulses Checked: ??yes Drug Injected: ??yes Procedure Tolerance: ??tolerated well ?? performed while the patient was sedated Vital Signs: ??Vital sings monitored and stable throughout. ??See anesthesia record for details. Procedure Start Time: 07/24/2017 8:10 AM. Procedure End Time: 07/24/2017 8:13 AM. Procedure Total Time: 3 ??minutes. Staff Section ? Anesthesia Provider: BRANDI HOLLAND, Performed Denice Mars DO GENERAL ANESTHESIA O RDERABLES * XR WRIST RIGHT 3VW OR MORE (07/11/2017 12:00 PM CDT) Anatomical Region Laterality Modality Wrist / Hand Computed Radiogr aphy Narrative 07/12/2017 5:06 PM CDT Silvia Alaniz ? 07/12/2017 ??5:06 PM Please see progress notes for result. Jeanmarie Silva DO DIAGNOSTIC IMAGIN G ORDERABLES Care Teams Commercial Loan Assistant Relationship Specialty Start Date End Date Moo Salazar MD PCP - General Family Medicine 03/29/16 Jeanmarie Silva DO Hand Surgery 03/29/16
--- OUTSIDE RECORDS SUMMARY | 2024-04-23 12:42 | XMS_ITS | Referral Summary ---
Author Organization [facility] Address [address] [place] [address] Care Team Providers Care Travel Registered Nurse Pacu Name Role Phone Moo Salazar MD Primary Care Provider [phone] Jeanmarie Silva DO Unavailable [phone] Source Comments [facility],non-owned Affiliates and Associated Physician Practices is amultiple site organization consisting of ambulatory clinics and hospital sitesin [place], [place], [place] and [place]. This disclosure is being madepursuant to the Care Everywhere program and may not contain all information available regarding this patient. Last updated 17.[facility] Allergies Active Allergy Reactions Criticality Noted Date [...] 07/24/2017 7:28 AM CDT Plan of Treatment Not on file Administered Medications Care Teams Travel Registered Nurse Pacu Relationship Specialty Start Date End Date Moo Salzaar MD PCP - General Family Medicine 03/29/16 Jeanmarie Silva DO Hand Surgery 03/29/16
[2024-04-23 12:45] LABS: Influenza A QL RT-PCR Positive (Negative); Influenza B QL RT-PCR Negative (Negative); RSV RNA, RT-PCR Negative (Negative); SARS-CoV-2 RNA PCR Negative (Negative)
[2024-04-23 12:50] LABS: Amphetamine Screen Urine Negative (Negative); Barbiturate Screen Urine Negative (Negative); Benzodiazepines Screen Urine Negative (Negative); Cannabinoid Screen Urine Negative (Negative); Cocaine Screen Urine Negative (Negative); Methadone Screen Urine Negative (Negative); Opiate Screen Urine Negative (Negative); Phencyclidine Screen Urine Negative (Negative)
[2024-04-23] MEDS: KETOROLAC 15 MG/ML VIAL (*BKC) IV PUSH (14:27)
[2024-04-23] MEDS: SODIUM CHLORIDE 0.9% IV 2,000 ML 999 ML IV CONT (14:27)
--- OUTSIDE RECORDS SUMMARY | 2024-04-23 14:32 | XMS_ITS | Patient Health Summary ---
Author Organization [facility] Address [address] [place] [address] Care Team Providers Care Surface Ship Usw Supervisor Name Role Phone Moo Salazar MD Primary Care Provider [phone] Jeanmarie Silva DO Unavailable [phone] Note from [facility],non-owned Affiliates and Associated Physician Practices is amultiple site organization consisting of ambulatory clinics and hospital sitesin [place], [place], [place] and [place]. This disclosure is being madepursuant to the Care Everywhere program and may not contain all information available regarding this patient. Last updated 17.[facility] Allergies * Adhesive Sensitivity(Rash) -Medium Criticality Medications [...] 61 07/24/2017 9:10 AM CDT Temperature 36.4 C (97.6 F) 07/24/2017 8:47 AM CDT Respiratory Rate 13 07/24/2017 9:10 AM CDT Oxygen Saturation 96% 07/24/2017 9:10 AM CDT Inhaled Oxygen Concentration - - Weight 59.9 kg (132 lb) 07/24/2017 7:28 AM CDT Height 162.6 cm (5' 4 ) 07/24/2017 7:28 AM CDT Body Mass Index 22.66 07/24/2017 7:28 AM CDT Procedures * [place] Block(Performed 07/24/2017) * RELEASE TRIGGER FINGER (TENDON SHEATH)(Performed 07/24/2017) Performed for Trigger finger, right middle finger * XR WRIST RIGHT 3VW OR MORE(Performed 07/11/2017) Performed for Arthralgia of right wrist Results * ANESTHESIA BLOCK PERF (07/24/2017 2:43 PM CDT) Narrative Denice Mars, DO - 07/24/2017 2:43 PM CDT Brandi Holland, MANAGER INSPECTION-SCHOOL SPEECH LANGUAGE PATHOLOGIST 07/24/2017 8:24 AM [place] Block: Patient Location: OR. Procedure: [place] Block Pre Procedure Section: Indications: surgical anesthesia Pre-Anesthetic Checklist: Patient identified, Site examined, Surgical consent verified, Pre-op evaluation done, Informed consent obtained, Allergies reviewed, IV Checked, Risks and benefits discussed, Monitors and equipment, Time-out performed and Questions answered/anesthesia questions answered Patient Position: supine Laterality: right Monitors: BP, continuous pluse ox, EKG and End tidal CO2 Patient Sedated? Sedation given Sedation Types: mild. Sedation Agents: versed fentanyl. Block IV already in place: yes Procedure: Tourniquet: single Inflation Pressure: 250 Arm Exsanguinated: yes Tourniquet Inflated: yes Pulses Checked: yes Drug Injected: yes Procedure Tolerance: tolerated well performed while the patient was sedated Vital Signs: Vital sings monitored and stable throughout. See anesthesia record for details. Procedure Start Time: 07/24/2017 8:10 AM. Procedure End Time: 07/24/2017 8:13 AM. Procedure Total Time: 3 minutes. Staff Section Anesthesia Provider: BRANDI HOLLAND, Performed Denice Mars DO GENERAL ANESTHESIA O RDERABLES * XR WRIST RIGHT 3VW OR MORE (07/11/2017 12:00 PM CDT) Anatomical Region Laterality Modality Wrist / Hand Computed Radiogr aphy Narrative 07/12/2017 5:06 PM CDT Silvia Alaniz 07/12/2017 5:06 PM Please see progress notes for result. Jeanmarie Silva DO DIAGNOSTIC IMAGIN G ORDERABLES Care Teams Surface Ship Usw Supervisor Relationship Specialty Start Date End Date Moo Salazar MD PCP - General Family Medicine 03/29/16 Jeanmarie Silva DO Hand Surgery 03/29/16
--- OUTSIDE RECORDS SUMMARY | 2024-04-23 14:32 | XMS_ITS | Referral Summary ---
Author Organization [facility] Address [address] [place] [address] Care Team Providers Care Shale Miner Name Role Phone Danica Jackson MD Primary Care Provider Encounters Date Type Department Care Team Description 04/23/2024 Telephone [facility] Medical Group Cardiology [address] [facility] [address] [place] [address] Elvin Chris MD 02/11/2024 11:45 AM WATER REGULATOR AND VALVE REPAIRER Office Visit [facility] Surgery [address] [facility] [address] [place] [address] Elisha Abdul NP Trigger finger, [...] (11/11/2018): Added automatically from request for surgery [id number] Benign essential hypertension 08/09/2016 Trigger middle finger [...] on file Legal Sex Female 5:25 PM WATER REGULATOR AND VALVE REPAIRER Gender Identity Not on file Sexual Orientation Not on file Last Filed Vital Signs Vital Sign Reading Time Taken Comments Blood Pressure 142/80 10/26/2023 9:42 AM CDT Pulse 60 10/16/2023 10:12 AM CDT Temperature 37.1 C (98.8 F) 01/06/2019 9:05 AM CDT Respiratory Rate 16 10/16/2023 10:12 AM CDT Oxygen Saturation 96% 04/10/2023 1:16 PM WATER REGULATOR AND VALVE REPAIRER Inhaled Oxygen Concentration - - Weight 55.8 kg (123 lb) 10/26/2023 9:42 AM CDT Height 161.3 cm (5' 3.5 ) 10/16/2023 10:12 AM CD T Body Mass Index 21.45 10/16/2023 10:12 AM CDT Plan of Treatment Upcoming Encounters Date Type Department Care Team (Late st Contact Info) Description 06/25/2024 9:25 AM CDT Hospital Encounter [facility] [address] [place] [address] China Lopez MD [address] [place] [address] [address] 06/25/2024 9:25 AM CDT - 06/25/2024 9:55 AM CDT Surgery [facility] Center [address] [place] [address] China Lopez MD [address] [place] [address] [place] [address] COLONOSCOPY Scheduled Procedures Name Priority Associated Diagnoses [...] Genotypes (08/21/2023 12:22 PM CDT) CLINICAL INFORMATION: [facility] Comment:SCREENING LMP [facility] Comment:UNKNOWN Previous Pap [facility] Comment:NONE GIVEN Prev. Bx [facility] Comment:NONE GIVEN SOURCE: [facility] Comment:Cervix, Endocervix Pap, specimen adequacy [facility] Comment:SATISFACTORY FOR FAUSTINO LUATION HPV interp [facility] Comment: Cytology Results: Negative for intraepithelial lesion or malignancy. Atrophic pattern; predominantly parabasal cells COMMENTS [facility] Comment: This Pap test has been evaluated with computer assisted technology. [facility] Comment: PCM, CT(ASCP) CT Screening Location: [place] [address] [address] MARY Silva [address] Review video game programmer [facility] Comment: LMT, CT(ASCP) CT screening location: [place] [address] [address] MARY [place] [address] Comment [facility] Comment: EXPLANATORY NOTE: The Pap is a [...] High Risk E6/E7 Detected (A) NOT DETECTED [facility] Comment: Detected One or more High Risk HPV types (16,18,31,33, 35,39,45,51,52,56,58,59,66,68) was detected. Methodology: Real Time PCR Thin prep 08/21/2023 12:2 2 PM CDT 08/22/2023 4:49 AM CDT Natali Dunne NP LAB CYTOLOGY ORDERABLES Final Re sult [place] [address] [address] MARY Mathis [phone] [facility] [address] [facility] [place] [address] * MAMMOGRAPHY (06/28/2021) Anatomical Region Laterality Modality Breast Mammography Gaby Mello NP IMG MAMMO PROCEDURES Faby l Result * Dexa Axial Skeleton Bone Density 1 or 2 Site (01/17/2019) Anatomical Region Laterality Modality Body N/A Radiographic Anne ging Gaby Mello NP IMG DXA PROCEDURES Final Result * COLONOSCOPY (01/06/2019 8:02 AM CDT) Anatomical Region Laterality Modality Other Narrative Procedure Note hCina Lopez MD - 01/06/2019 8:02 AM CDT [facility] Patient Name: Melina Krishnan Procedure Date: 01/06/2019 8:02 AM Date of : 1955 Admit Type: Outpatient Age: 63 Gender: Female Attending MD: China Lopez M.D. Room: COUNT INCLUDES THE [facility] ENDOSCOPY ROOM 1 Note Status: [...] passed under direct vision. The PediatricColonoscope [id number] was introduced through the anusand advanced to [...] 8:02 AM Procedure Code(s): --- Professional --- 21626, Colonoscopy, flexible; with biopsy, single or multiple Diagnosis Code(s): --- Professional --- Z86.010, Personal history of colonic polyps K64.8, Other hemorrhoids K63.89, Other specified diseases of intestine CPT copyright 2017 [employer]. All rights reserved. The codes documented in this report are preliminary and upon coal miner reviewmay be revised to meet current compliance requirements. Recognized by the [employer] for promoting quality in endoscopy China Lopez MD ENDOSCOPY PROCEDURES Final Result from Last 3 Months or Most Recently Relevant to Health Maintenance Additional Health Concerns Infection Onset Date Last Indicated C. difficile Comment:Germ watcher auto flagging 01/01/2014 01/01/2014 Insurance MEDICARE COMMERCIAL GENERIC MEDICARE COMMERCIAL GENERIC MEDICARE COMMERCIAL GENERIC Advance Directives For more information, please contact: [phone] * Full Code (Latest Code Status on File) Date Activated Date Inactivated Comments 01/06/2019 7:38 AM 01/06/2019 1:33 PM * Full Code Date Activated Date Inactivated Comments 01/06/2019 7:38 AM 01/06/2019 7:38 AM Care Teams Shale Miner Relationship Specialty Start Date End Date Danica Jackson MD [address] [place] [address] PCP - General Family Medicine 01/17/17
--- OUTSIDE RECORDS SUMMARY | 2024-04-23 14:32 | XMS_ITS | Referral Summary ---
Author Organization [facility] Address [address] [facility] [place] [address] Care Team Providers Care Director Veterinary Name Role Phone Moo Salazar MD Primary Care Provider [phone] Jeanmarie Silva DO Unavailable [phone] Source Comments [facility],non-owned Affiliates and Associated Physician Practices is amultiple site organization consisting of ambulatory clinics and hospital sitesin [place], [place], [place] and [place]. This disclosure is being madepursuant to the Care Everywhere program and may not contain all information available regarding this patient. Last updated 17.[facility] Allergies Active Allergy Reactions Criticality Noted [...] Not on file Administered Medications Care Teams Director Veterinary Relationship Specialty Start Date End Date Moo Salazar MD PCP - General Family Medicine 03/29/16 Jeanmarie Silva DO Hand Surgery 03/29/16
--- OUTSIDE RECORDS SUMMARY | 2024-04-23 14:32 | XMS_ITS | Encounter Summary ---
Author Organization [facility] Address [address] [place] [place] [address] Care Team Providers Care Fretted Instrument Maker Hand Name Role Phone Moo Salazar MD Primary Care Provider [phone] Jeanmarie Silva DO Unavailable [phone] Encounter Details Date Type Department Care Team (Late st Contact Info) Description 07/12/2017 [facility] Outpatient Visit [facility]opedics - Radiology [address] [place], [place] [id number] Jeanmarie Silva DO [address] [facility] [address] [place] [address] Social History Tobacco Use Types Packs/Day Years Used Date Smoking Tobacco: Never Assessed Sex and Gender Information Value Date Recorded Sex Assigned at Not on file Gender Identity Not on file Sexual Orientation Not on file documented as of this encounter Plan of Treatment Not on file documented as of this encounter Visit Diagnoses Not on filedocumented in this encounter Care Teams Fretted Instrument Maker Hand Relationship Specialty Start Date End Date Moo Salazar MD PCP - General Family Medicine 03/29/16 Jeanmarie Silva DO Hand Surgery 03/29/16 documented as of this encounter
--- OUTSIDE RECORDS SUMMARY | 2024-04-23 14:32 | XMS_ITS | Clinical Summary ---
Author Organization [facility] Address [address] [place] [address] Care Team Providers Care Subsurface Augmentee Elint Operator Name Role Phone Moo Salazar MD Primary Care Provider [phone] Jeanmarie Silva DO Unavailable [phone] Source Comments [facility],non-owned Affiliates and Associated Physician Practices is amultiple site organization consisting of ambulatory clinics and hospital sitesin [place], [place], [place] and [place]. This disclosure is being madepursuant to the Care Everywhere program and may not contain all information available regarding this patient. Last updated 17.[facility] Allergies Active Allergy Reactions Criticality Noted [...] VACCINE (1 of 2) 10/02/2007 COVID-19 VACCINE (1 - 2023-2 5 season) 2023 INFLUENZA VACCINE [...] age to complete this topic Care Teams Subsurface Augmentee Elint Operator Relationship Specialty Start Date End Date Moo Salazar MD PCP - General Family Medicine 03/29/16 Jeanmarie Silva DO Hand Surgery 03/29/16
--- OUTSIDE RECORDS SUMMARY | 2024-04-23 14:32 | XMS_ITS | Clinical Summary ---
Author Organization [facility] Address [address] [place] [address] Phone Care Team Providers Care Education Assistant Name Role Phone Danica Glasgow MD Primary Care Provider [phone] Social History Tobacco Use Types Packs/Day Years [...] Procedure Name Priority Date/Time Associated Diagnosis Comments [facility] BONE DENSITOMETRY AXIAL SKELETON Routine 09/24/2023 9:40 AM CDT Asymptomatic menopausal state [facility] SCREENING BILATERAL DIGITAL W CAD W SANDIE Routine 09/24/2023 9:30 AM CDT Visit for screening mammogram from Last 3 Months or Most Recently Relevant to Health Maintenance Results * [facility] BONE DENSITOMETRY AXIAL SKELETON (09/24/2023 9:40 [...] Narrative 09/24/2023 5:09 PM CDT EXAM DESCRIPTION: [facility] BONE DENSITOMETRY AXIAL SKELETON REASON FOR STUDY: 67 y/o year old F with given history of: 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 MF: JOHN Report ID: [id number] Reading Location: [place] [address] IMPRESSION: Low Bone Mass. REFERENCE: Bone mineral [...] of Osteoporosis (http://www.nof.org/professionals/clinical-guidelines) us Danica Glasgow MD IMElisa DEXA ORDERABLES Final Resul t * JAMES [...] to exams dated: 09/14/2022, 06/28/2021, and 01/17/2019 [facility]. BREAST TISSUE:There are scattered fibroglandular densities in [...] exam. Electronically signed by: Maribell Payan M.D. ll/cristiano:09/24/2023 22:31:01 Pathology Secretary/Transcriptionist(s): RT Trice(R)(M), [facility] letter sent: Normal Exam Reading location: [place] BI-RADS: 2 Benign Procedure [...] to exams dated: 09/14/2022, 06/28/2021, and 01/17/2019 [facility]. BREAST TISSUE:There are scattered fibroglandular densities in [...] exam. Electronically signed by: Maribell pena/cristiano:09/24/2023 22:31:01 Pathology Secretary/Transcriptionist(s): RT Trice(R)(M), [facility] letter sent: Normal Exam Reading location: [place] BI-RADS: 2 Benign us Natali Uzair STRUCTURES MECHANIC IMG MAMMO ORDERABLES Final Resu lt from Last 3 Months or Most Recently Relevant to Health Maintenance Insurance MEDICARE COMMERCIAL GENERIC Care Teams Education Assistant Relationship Specialty Start Date End Date Danica Glasgow MD [address] [place] [address] [id number] PCP - General 08/22/17
--- OUTSIDE RECORDS SUMMARY | 2024-04-23 14:32 | XMS_ITS | Clinical Summary ---
Author Organization [facility] Building [facility] Address [address] [place] [address] Care Team Providers Care Management Technician Name Role Phone Danica Jackson MD Primary [...] (11/11/2018): Added automatically from request for surgery [id number] Benign essential hypertension 08/09/2016 Trigger middle finger [...] Type Department Care Team Description 04/23/2024 Telephone [facility] Medical [facility] Cardiology [address] [place] [address] Elvin Chris MD 02/11/2024 11:45 AM VAULT MANAGER Office Visit [facility] Surgery [address] [address] [place] [address] Elisha Abdul NP Trigger finger, [...] on file Legal Sex Female 5:25 PM VAULT MANAGER Gender Identity Not on file Sexual Orientation [...] CDT Oxygen Saturation 96% 04/10/2023 1:16 PM VAULT MANAGER Inhaled Oxygen Concentration - - Weight 55.8 kg (123 lb) 10/26/2023 9:42 AM CDT Height 161.3 cm (5' 3.5 ) 10/16/2023 10:12 AM CD T Body Mass Index 21.45 10/16/2023 10:12 AM CDT Plan of Treatment Upcoming Encounters Date Type Department Care Team (Late st Contact Info) Description 06/25/2024 9:25 AM CDT Hospital Encounter [facility] [address] [place] [address] China Lopez MD [address] [facility] [address] [place] [address] 06/25/2024 9:25 AM CDT - 06/25/2024 9:55 AM CDT Surgery [facility] [address] [place] [address] China Lopez MD [address] [facility] [place] [address] COLONOSCOPY Scheduled Procedures Name Priority Associated Diagnoses [...] Genotypes (08/21/2023 12:22 PM CDT) CLINICAL INFORMATION: [facility] Comment:SCREENING LMP [facility] Comment:UNKNOWN Previous Pap [facility] Comment:NONE GIVEN Prev. Bx [facility] Comment:NONE GIVEN SOURCE: [facility] Comment:Cervix, Endocervix Pap, specimen adequacy [facility] Comment:SATISFACTORY FOR FAUSTINO LUATION HPV interp [facility] Comment: Cytology Results: Negative for intraepithelial lesion or malignancy. Atrophic pattern; predominantly parabasal cells COMMENTS [facility] Comment: This Pap test has been evaluated with computer assisted technology. [facility] Comment: PCM, CT(ASCP) CT Screening Location: [place] [address] [address] [place] [address] Review software consultant [facility] Comment: LMT, CT(ASCP) CT screening location: [place] [address] [address] [place] [id number] Comment [facility] Comment: EXPLANATORY NOTE: The Pap is [...] High Risk E6/E7 Detected (A) NOT DETECTED [facility] Comment: Detected One or more High Risk HPV types (16,18,31,33, 35,39,45,51,52,56,58,59,66,68) was detected. Methodology: Real Time PCR Thin prep 08/21/2023 12:2 2 PM CDT 08/22/2023 4:49 AM CDT Natali Dunne NP LAB CYTOLOGY ORDERABLES Final Re sult [facility] [address] [place] [address] [facility] [address] [facility] [place] [address] * MAMMOGRAPHY (06/28/2021) Anatomical Region Laterality Modality Breast Mammography Gbay Mello NP IMG MAMMO PROCEDURES Faby l Result * Dexa Axial Skeleton Bone Density 1 or 2 Site (01/17/2019) Anatomical Region Laterality Modality Body N/A Radiographic Anne ging Gaby Mello NP IMG DXA PROCEDURES Final Result * COLONOSCOPY (01/06/2019 8:02 AM CDT) Anatomical Region Laterality Modality Other Narrative Procedure Note China Lopez MD - 01/06/2019 8:[address] [facility] Patient Name: Melina Krishnan Procedure Date: 01/06/2019 8:02 AM Date of : 1955 Admit Type: Outpatient Age: 63 Gender: Female Attending MD: China Lopez M.D. Room: [facility] ENDOSCOPY ROOM 1 Note Status: Finalized [...] passed under direct vision. The PediatricColonoscope [id number] was introduced through the anusand advanced to [...] 8:02 AM Procedure Code(s): --- Professional --- 47587, Colonoscopy, flexible; with biopsy, single or multiple Diagnosis Code(s): --- Professional --- Z86.010, Personal history of colonic polyps K64.8, Other hemorrhoids K63.89, Other specified diseases of intestine CPT copyright 2017 [employer]. All rights reserved. The codes documented in this report are preliminary and upon fixed income portfolio manager reviewmay be revised to meet current compliance requirements. Recognized by the [employer] for promoting quality in endoscopy us China Lopez MD ENDOSCOPY PROCEDURES Final Result from Last 3 Months or Most Recently Relevant to Health Maintenance Additional Health Concerns Infection Onset Date Last Indicated C. difficile Comment:Germ watcher auto flagging 01/01/2014 01/01/2014 Insurance MEDICARE COMMERCIAL GENERIC MEDICARE COMMERCIAL GENERIC MEDICARE COMMERCIAL GENERIC Advance Directives For more information, please contact: [phone] * Full Code (Latest Code Status on File) Date Activated Date Inactivated Comments 01/06/2019 7:38 AM 01/06/2019 1:33 PM * Full Code Date Activated Date Inactivated Comments 01/06/2019 7:38 AM 01/06/2019 7:38 AM Care Teams Management Technician Relationship Specialty Start Date End Date Danica Jackson MD [address] [place] [id number] PCP - General Family Medicine 01/17/17
--- OUTSIDE RECORDS SUMMARY | 2024-04-23 14:32 | XMS_ITS | Encounter Summary ---
Author Organization [facility] Healthcare Address [address] [place] [address] Care Team Providers Care Manager Business Management Name Role Phone Danica Jackson MD Primary Care Provider Encounter Details Date Type Department Care Team (Late st Contact Info) Description 04/23/2024 Telephone [facility] Medical Group Cardiology [address] [facility] [address] [place] [address] Elvin Chris MD [address] [place] [id number] Social History Tobacco Use Types Packs/Day Years [...] on file Legal Sex Female 5:25 PM JAVA SOLUTIONS ARCHITECT Gender Identity Not on file Sexual Orientation Not on file documented as of this encounter Miscellaneous Notes * Telephone Encounter - Kamryn Michael RN - 04/23/2024 10:41 AM JAVA SOLUTIONS ARCHITECT Noted, sent message to [facility]. SOLUTIONS ARCHITECT * Telephone Encounter - Hannah Hernandes - 04/23/2024 10:30 AM CST Pt dtr Mally called to report pt was in [place] but is in AFIB so she had to cut her trip short. States they are on the way to ED due to being in AFIB. Wants MAF to be aware. Contact: SOLUTIONS ARCHITECT documented in this encounter Plan of Treatment Upcoming Encounters Date Type Department Care Team (Late st Contact Info) Description 06/25/2024 9:25 AM CDT Hospital Encounter [address] [address] China Lopez MD [address] [facility] [address] [place] [address] 06/25/2024 9:25 AM CDT - 06/25/2024 9:55 AM CDT Surgery [address] [address] China Lopez MD [address] [facility] [address] [place] [address] COLONOSCOPY Scheduled Procedures Name Priority Associated Diagnoses Date/Ti me COLONOSCOPY Personal history of colonic polyps Encounter for screening colonoscopy 06/25/2024 9:25 AM CDT documented as of this encounter Visit Diagnoses Not on filedocumented in this encounter Additional Health Concerns Infection Onset Date Last Indicated Resolved Time C. difficile Comment:Germ watcher auto flagging 01/01/2014 01/01/2014 documented as of this encounter Care Teams Manager Business Management Relationship Specialty Start Date End Date Danica Jackson MD [address] [place] [address] PCP - General Family Medicine 01/17/17 documented as of this encounter
--- NOTE | 2024-04-23 16:18 | PC.NURSE ---
Ambulated to hallway with assist of 2. Pt unsteady gait and leans on staff to ambulate. Becomes pale with activity.
--- NOTE | 2024-04-23 16:34 | PM.IMHP ---
H&P: HPI History of Present Illness Date/Time: 04/23/24 16:34 Chief Complaint: Cough, general weakness, syncope Narrative: 68 years old lady with history of persistent AFib on Xarelto, hypertension, present ED with a chief complaint of general weakness, cough syncope. Patient has been not feeling well in past few more days, patient went to [place] for vacation on Sunday. Patient had a cough, general weakness, and also had diarrhea. Patient stayed in the hotel. On Sunday, patient went to bathroom for shower, patient passed out and fell on the left forehead. Before she passed out, patient felt lightheaded, patient denied chest pain, palpitation, abdomen pain, focal weakness vision change. When patient woke up, patient was not confused. Patient went to local hospital for evaluation treatment. Patient was still feel weak therefore patient flew back yesterday. Today patient still had general weakness, intermittent lightheadedness with stent upon walking. Denies headache, vision change, focal weakness, fever, chills, photophobia, abdomen pain, nausea vomiting. Patient had 1 loose stool today. Patient denies black emesis, bloody stools. Upon arrival with the ED, patient is afebrile above pressure stable, pulse ox 100% on room air, labs showed leukopenia 3700 chemistry showed hyponatremia 134, elevated BUN creatinine ratio 23/0.62. UA unremarkable, respiratory pathogen PCR is positive of influenza a, chest x-ray shows no acute cardiopulmonary issues. EKG showed sinus rhythm, 65, no specific ST or T-wave changes Review of Systems Review of Systems: ROS negative except above Meds Home Medications and Allergies Home Medications ?Medication ?Instructions ?Recorded ?Confirmed ?Type hydrochlorothiazide 25 mg tablet mg 04/23/24 History lisinopril 20 mg tablet mg 04/23/24 History metoprolol succinate 25 mg mg PO 04/23/24 History tablet,extended release 24 hr oxybutynin chloride 10 mg mg PO 04/23/24 History tablet,extended release 24 hr rivaroxaban 20 mg tablet (Xarelto) mg 04/23/24 History Allergies Allergy/AdvReac Type Severity Reaction Status Date / Time No Known Allergies Allergy Unverified 04/23/24 11:47 Vital Signs Vital Signs - 24 hr 04/23/24 11:12 04/23/24 11:42 04/23/24 11:43 Temperature 97.6 F Pulse Rate 87 77 77 Respiratory Rate 16 21 H Blood Pressure 167/82 H Pulse Oximetry 98 99 04/23/24 11:43 04/23/24 11:45 04/23/24 11:46 Temperature Pulse Rate 72 71 76 Respiratory Rate 16 15 14 Blood Pressure 160/100 H 146/98 H Pulse Oximetry 97 98 97 04/23/24 11:47 04/23/24 12:00 04/23/24 12:15 Temperature Pulse Rate 73 72 74 Respiratory Rate 18 12 11 L Blood Pressure 146/98 H Pulse Oximetry 98 98 04/23/24 12:30 04/23/24 13:30 04/23/24 13:48 Temperature Pulse Rate 71 72 74 Respiratory Rate 12 16 19 Blood Pressure Pulse Oximetry 100 100 04/23/24 14:18 04/23/24 14:30 04/23/24 14:31 Temperature Pulse Rate 74 65 67 Respiratory Rate 10 L 11 L 18 Blood Pressure 167/92 H 162/97 H Pulse Oximetry 100 100 100 04/23/24 14:31 04/23/24 14:45 04/23/24 14:46 Temperature Pulse Rate 74 71 69 Respiratory Rate 13 19 11 L Blood Pressure 170/86 H Pulse Oximetry 100 100 100 04/23/24 15:04 04/23/24 15:15 04/23/24 15:16 Temperature Pulse Rate 69 64 86 Respiratory Rate 17 14 19 Blood Pressure 177/11 H Pulse Oximetry 100 100 100 04/23/24 15:30 04/23/24 15:31 Temperature Pulse Rate 70 78 Respiratory Rate 15 15 Blood Pressure 171/94 H Pulse Oximetry 100 100 Exam Narrative: GENERAL: Pleasant, in no acute distress. Well-nourished. - EYES: EOMI. Anicteric. - HENT: Dry mucous membranes. ecchymosis of left periorbital region - LUNGS: Clear to auscultation bilaterally, no wheezing, rhonchi, or rales. - CARDIOVASCULAR: Regular rate and rhythm. No murmur. No JVD. - ABDOMEN: Soft, non-tender and non-distended. No palpable masses. - EXTREMITIES: No edema. Peripheral pulses 2+. Non-tender. - NEUROLOGIC: No focal neurological deficits. CN II-XII grossly intact. General weakness - PSYCHIATRIC: Awake, Alert and oriented x 3. Appropriate mood and affect. - SKIN: No rashes or lesions. Warm. - LYMPH: No cervical lymphadenopathy. H&P: Results Labs Labs: Short CBC 04/23/24 Range/Units 12:01 WBC 3.7 L (4.5-10.0) K/mm3 Hgb 15.1 H (12.0-15.0) g/dL Hct 44.9 (37.0-47.0) % Plt Count 192 (150-375) k/mm3 BMP 04/23/24 12:01 Sodium 134 L Potassium 3.7 Chloride 98 Carbon Dioxide 28 BUN 23 H Creatinine 0.62 L Glucose 106 Calcium 9.3 Cardiac Enzymes 04/23/24 Range/Units 12:01 Total Creatine Kinase 52 (30-135) U/L Troponin I < 0.012 (0.000-0.034) ng/mL Liver Function 04/23/24 Range/Units 12:01 Total Bilirubin 0.5 (0.2-1.3) mg/dL AST 32 (14-36) U/L ALT 38 H (6-35) U/L Alkaline Phosphatase 79 (38-126) U/L Albumin 4.0 (3.5-5.1) g/dL Urine 04/23/24 Range/Units 12:19 Urine Color Yellow (Yellow) Urine Appearance Clear (Clear) Urine pH 6.5 (5.0-9.0) Ur Specific [place] 1.021 (1.001-1.035) Urine Protein Trace (Negative) mg/dL Urine Glucose (UA) Negative (Negative) mg/dL Assessment and Plan Assessment and plan (1) Influenza: Code(s): J11.1 - Influenza due to unidentified influenza virus with other respiratory manifestations Status: Acute (2) General weakness: Code(s): R53.1 - Weakness Status: Acute (3) Hyponatremia: Code(s): E87.1 - Hypo-osmolality and hyponatremia Status: Acute (4) Dehydration: Code(s): E86.0 - Dehydration Status: Acute (5) Syncope: Code(s): R55 - Syncope and collapse Status: Acute (6) Paroxysmal A-fib: Code(s): I48.0 - Paroxysmal atrial fibrillation Status: Acute Plan Syncope Possible related also static hypotension, vasovagal syncope Patient fell on left forehead, patient has ecchymosis of left periorbital region Patient denies vision change, focal weakness CT head shows no acute intracranial issues no fracture of cervical spine CT abdomen pelvis shows no posttraumatic findings Place patient on telemetry monitoring Order echocardiogram Orthostatic test Fall precaution Neuro check Paroxysmal AFib Now patient is sinus rhythm Continue Eliquis 20 mg daily p.o. Continue metoprolol 25 mg daily p.o. Essential hypertension Continue lisinopril 20 mg daily p.o. Hyponatremia, dehydration Likely secondary to diarrhea poor intake Received fluid resuscitation in the ED Continue normal saline IV 75 mL/hour Hospitalist [facility] Advance Care Plan I have confirmed that the patient's Advanced Care Plan is present, code status is documented, or surrogate decision maker is listed in patient medical record.: Yes Medication Reconciliation I have utilized all available resources to obtain, update and review the patients current medications (includes all prescriptions, OTC, herbals, cannabis, and nutritional supplements).: Yes
[2024-04-23] MEDS: [UNRECOGNIZED DRUG - REMARK] 1 EACH XX (16:57)
[2024-04-23] MEDS: LACTATED RINGERS 1,000 ML 125 ML IV CONT (17:16)
[2024-04-23] MEDS: lisinopriL 20 MG TABLET PO (18:41)
[2024-04-23] MEDS: OSELTAMIVIR PHOSPHATE 75 MG CAPSULE PO (20:41)
--- NOTE | 2024-04-23 22:07 | PC.NURSE ---
Orthostatic vitals obtained, no drop in pressure, no dizzy or lightheaded noted. Only complaints of weakness.
[2024-04-23] MEDS: KETOROLAC 30 MG/ML VIAL (*BKC) IV PUSH (23:01)
[2024-04-24] VITALS (13 sets, daily range): BP systolic 135–196; BP diastolic 75–100; PULSE 58–99; RESP 16–18; TEMP 35.9–36.7; O2SAT 90–100
--- NOTE | 2024-04-24 09:53 | PM.IMPN ---
Progress Note: A&P Assessment and Plan (1) Influenza: Code(s): J11.1 - Influenza due to unidentified influenza virus with other respiratory manifestations Status: Acute (2) General weakness: Code(s): R53.1 - Weakness Status: Acute (3) Hyponatremia: Code(s): E87.1 - Hypo-osmolality and hyponatremia Status: Acute (4) Dehydration: Code(s): E86.0 - Dehydration Status: Acute (5) Syncope: Code(s): R55 - Syncope and collapse Status: Acute (6) Paroxysmal A-fib: Code(s): I48.0 - Paroxysmal atrial fibrillation Status: Acute Plan Syncope Possible related also static hypotension, vasovagal syncope Patient fell on left forehead, patient has ecchymosis of left periorbital region Patient denies vision change, focal weakness CT head shows no acute intracranial issues no fracture of cervical spine CT abdomen pelvis shows no posttraumatic findings Place patient on telemetry monitoring Pending echocardiogram Orthostatic test: Negative Fall precaution Neuro check Paroxysmal AFib Now patient is sinus rhythm Continue Eliquis 20 mg daily p.o. Continue metoprolol 25 mg daily p.o. Essential hypertension Continue lisinopril 20 mg daily p.o. Resume hydrochlorothiazide 25 mg daily Blood pressure is uncontrolled, start hydralazine IV p.r.n. Hyponatremia, dehydration Likely secondary to diarrhea poor intake Received fluid resuscitation in the ED, Continue normal saline IV 75 mL/hour / corrected today dc iv fluid Med discharge patient in 1-2 days Subjective Date/time seen: 04/24/24 09:53 Interval history: Patient is feeling better today denies dizziness, chest pain, palpitation patient still has weakness. Blood pressure is not well controlled Exam Narrative: GENERAL: Pleasant, in no acute distress. Well-nourished. - EYES: EOMI. Anicteric. - HENT: Dry mucous membranes. ecchymosis of left periorbital region - LUNGS: Clear to auscultation bilaterally, no wheezing, rhonchi, or rales. - CARDIOVASCULAR: Regular rate and rhythm. No murmur. No JVD. - ABDOMEN: Soft, non-tender and non-distended. No palpable masses. - EXTREMITIES: No edema. Peripheral pulses 2+. Non-tender. - NEUROLOGIC: No focal neurological deficits. CN II-XII grossly intact. General weakness - PSYCHIATRIC: Awake, Alert and oriented x 3. Appropriate mood and affect. - SKIN: No rashes or lesions. Warm. - LYMPH: No cervical lymphadenopathy. Objective Data Vital Signs Vital Signs: Vital Signs - 24 hr 04/23/24 11:12 04/23/24 11:42 04/23/24 11:43 Temperature 97.6 F Pulse Rate 87 77 77 Respiratory Rate 16 21 H Blood Pressure 167/82 H Pulse Oximetry 98 99 Oxygen Delivery 04/23/24 11:43 04/23/24 11:45 04/23/24 11:46 Temperature Pulse Rate 72 71 76 Respiratory Rate 16 15 14 Blood Pressure 160/100 H 146/98 H Pulse Oximetry 97 98 97 Oxygen Delivery 04/23/24 11:47 04/23/24 12:00 04/23/24 12:15 Temperature Pulse Rate 73 72 74 Respiratory Rate 18 12 11 L Blood Pressure 146/98 H Pulse Oximetry 98 98 Oxygen Delivery 04/23/24 12:30 04/23/24 13:30 04/23/24 13:48 Temperature Pulse Rate 71 72 74 Respiratory Rate 12 16 19 Blood Pressure Pulse Oximetry 100 100 Oxygen Delivery 04/23/24 14:18 04/23/24 14:30 04/23/24 14:31 Temperature Pulse Rate 74 65 67 Respiratory Rate 10 L 11 L 18 Blood Pressure 167/92 H 162/97 H Pulse Oximetry 100 100 100 Oxygen Delivery 04/23/24 14:31 04/23/24 14:45 04/23/24 14:46 Temperature Pulse Rate 74 71 69 Respiratory Rate 13 19 11 L Blood Pressure 170/86 H Pulse Oximetry 100 100 100 Oxygen Delivery 04/23/24 15:04 04/23/24 15:15 04/23/24 15:16 Temperature Pulse Rate 69 64 86 Respiratory Rate 17 14 19 Blood Pressure 177/11 H Pulse Oximetry 100 100 100 Oxygen Delivery 04/23/24 15:30 04/23/24 15:31 04/23/24 17:28 Temperature Pulse Rate 70 78 63 Respiratory Rate 15 15 16 Blood Pressure 171/94 H 162/81 H Pulse Oximetry 100 100 99 Oxygen Delivery 04/23/24 20:00 04/23/24 20:22 04/23/24 20:23 Temperature 97.7 F 97.9 F Pulse Rate 74 70 71 Respiratory Rate 18 18 Blood Pressure 93/54 L 168/84 H Pulse Oximetry 100 100 Oxygen Delivery 04/23/24 21:57 04/23/24 22:00 04/23/24 22:02 Temperature 98.4 F Pulse Rate 65 Respiratory Rate 18 Blood Pressure 157/85 H 153/94 H Pulse Oximetry 95 Oxygen Delivery Room Air 04/24/24 00:00 04/24/24 04:00 04/24/24 06:00 Temperature 97.5 F L Pulse Rate 62 58 L 66 Respiratory Rate 18 Blood Pressure 170/75 H Pulse Oximetry 99 Oxygen Delivery 04/24/24 08:00 04/24/24 08:39 04/24/24 08:39 Temperature 96.6 F L 96.6 F L 96.6 F L Pulse Rate 67 77 85 Respiratory Rate 16 16 16 Blood Pressure 196/100 H 194/92 H 194/95 H Pulse Oximetry 99 100 100 Oxygen Delivery Intake/Output Intake/Output: Intake & Output 04/21/24 04/22/24 04/23/24 04/24/24 23:59 23:59 23:59 23:59 Intake Total 2000 1000 Output Total 100 Balance 1900 1000 Meds/Results Medications: Active Medications Generic Name Dose Route Start Last Admin Trade Name Freq PRN Reason Stop Dose Admin Calcium Carbonate 1,000 mg 04/24/24 09:00 Calcium/Vitamin D 500 Mg/5 Mcg (200 I.U.) Tablet PO QAM [facility] Hydrochlorothiazide 25 mg 04/24/24 09:00 Hydrochlorothiazide 25 Mg Tablet PO DAILY [facility] Lisinopril 20 mg 04/23/24 17:15 04/23/24 18:41 Lisinopril 20 Mg Tablet PO 20 mg QAM [facility] Administration Magnesium Oxide 400 mg 04/24/24 09:00 Magnesium Oxide 400 Mg Tablet PO DAILY [facility] Metoprolol Succinate 25 mg 04/24/24 09:00 Metoprolol Succinate Ext Rel 25 Mg Tabcr PO DAILY [facility] Oseltamivir Phosphate 75 mg 04/23/24 21:00 04/23/24 20:41 Oseltamivir Phosphate 75 Mg Capsule PO 04/28/24 20:59 75 mg Q12HR JUAN PABLO Administration Oxybutynin Chloride 10 mg 04/24/24 09:00 Oxybutynin Chloride Xl 5 Mg Tab.Er.24 PO DAILY [facility] Perflutren Lipid Microsphere 0 ml 04/23/24 17:11 Perflutren Lipid Microspheres 1.5 Ml Vial Diluted To 10 Ml Total Volume IV PUSH 04/26/24 17:11 ONCE PRN adequate visualization Protocol Rivaroxaban 20 mg 04/24/24 17:00 Rivaroxaban 20 Mg Tablet PO DAILY@1700 [facility] Vitamin D 2,000 units 04/24/24 09:00 Cholecalciferol 1,000 Units Tablet PO DAILY [facility] Radiology Results: ITS Impressions Head CT 04/23/24 12:51 IMPRESSION: 1. Normal brain. Cervical Spine CT 04/23/24 12:53 IMPRESSION: 1. No fracture. 2. Severe cervical spondylosis. Chest/Abdomen/Pelvis/Spine CT 04/23/24 12:56 IMPRESSION: 1. No posttraumatic findings. Chest X-Ray 04/23/24 13:13 Impression: Normal chest. Elbow X-Ray 04/23/24 13:13 Impression: Unremarkable radiographs. Wrist X-Ray 04/23/24 13:16 Impression: Mild degenerative change of the first CMC joint. Labs Labs: Laboratory Results - last 24 hr 04/23/24 04/23/24 12:01 12:19 WBC 3.7 L RBC 4.87 Hgb 15.1 H Hct 44.9 MCV 92.2 MCH 31.0 MCHC 33.6 RDW 13.2 Plt Count 192 MPV 11.3 H Immature Gran % (Auto) 0.3 Neut % (Auto) 31.3 L Lymph % (Auto) 58.9 H [place] % (Auto) 8.7 H Eos % (Auto) 0.3 Baso % (Auto) 0.5 Lymph # (Auto) 2.16 [place] # (Auto) 0.3 Eos # (Auto) 0.0 Baso # (Auto) 0.0 Abs Immat Gran (auto) 0.01 Absolute Neuts (auto) 1.2 L Absolute Nucleated RBC 0.000 Nucleated RBC % 0.0 Atypical Lymphocytes Present Platelet Estimate Adequate Schistocytes None seen PT 13.1 INR 1.0 APTT 27.4 Sodium 134 L Potassium 3.7 Chloride 98 Carbon Dioxide 28 Anion Gap 8 BUN 23 H Creatinine 0.62 L Estim Creat Clear Calc Not Reportable Estimated GFR > 60 Glucose 106 Lactic Acid 1.1 Calcium 9.3 Total Bilirubin 0.5 AST 32 ALT 38 H Alkaline Phosphatase 79 Total Creatine Kinase 52 Troponin I < 0.012 Total Protein 7.0 Albumin 4.0 TSH 1.070 Urine Color Yellow Urine Appearance Clear Urine pH 6.5 Ur Specific [place] 1.021 Urine Protein Trace Urine Glucose (UA) Negative Urine Ketones Trace H Ur Blood (Man) Negative Urine Nitrate Negative Urine Bilirubin Negative Urine Urobilinogen 1.0 Leukocyte Esterase Rfl Negative Urine RBC 0-2 Urine WBC 0-5 Ur Squamous Epith Cells None seen Urine Bacteria None seen Urine Casts 0-2 Urine Opiates Screen Negative Urine Methadone Screen Negative Ur Barbiturates Screen Negative Ur Phencyclidine Scrn Negative Ur Amphetamine Screen Negative U Benzodiazepines Scrn Negative Urine Cocaine Screen Negative U Cannabinoids Screen Negative Ethyl Alcohol < 10 Influenza A (RT-PCR) Positive A Influenza B (RT-PCR) Negative RSV (RT-PCR) Negative SARS-CoV-2 RNA (RT-PCR) Negative Blood Type O Positive Antibody Screen Negative
[2024-04-24] MEDS: oxyBUTYnin CHLORIDE XL 5 MG TAB.ER.24 10 MG PO (09:55)
[2024-04-24] MEDS: lisinopriL 20 MG TABLET PO (09:56)
[2024-04-24] MEDS: OSELTAMIVIR PHOSPHATE 75 MG CAPSULE PO ×2 (09:56→20:22)
[2024-04-24] MEDS: MAGNESIUM OXIDE 400 MG TABLET PO (09:56)
[2024-04-24] MEDS: hydroCHLOROthiazide 25 MG TABLET PO (09:56)
[2024-04-24] MEDS: CHOLECALCIFEROL 1,000 UNITS TABLET 2000 UNITS PO (09:56)
[2024-04-24] MEDS: METOPROLOL SUCCINATE EXT REL 25 MG TABCR PO (09:57)
[2024-04-24 10:13] LABS: Hematocrit 39.9 % (37.0-47.0); Hemoglobin 13.2 g/dL (12.0-15.0); Mean Corpuscular HGB Conc 33.1 g/dl (32-36); Mean Corpuscular Hemoglobin 30.8 pg (26-34); Mean Platelet Volume 10.8 fl (7.4-10.4); Platelet Count Result 141 k/mm3 (150-375); Red Blood Count 4.29 M/mm3 (4.2-5.4); Red Cell Distribution Width 12.9 % (11.5-14.5); White Blood Count 2.7 K/mm3 (4.5-10.0)
[2024-04-24 10:32] LABS: Anion Gap 9 mmol/L (4-12); Blood Urea Nitrogen 14 mg/dL (7-17); Calcium 8.8 mg/dL (8.4-10.2); Carbon Dioxide 26 mmol/L (22-30); Chloride 103 mmol/L (98-107); Estimated CRCL calculation 68 ml/min; Estimated Glomerular Filt Rate > 60; Glucose 149 mg/dL (65-110); Potassium 3.5 mmol/L (3.4-5.0); Sodium 138 mmol/L (137-145)
[2024-04-24] MEDS: ACETAMINOPHEN 325 MG TABLET 650 MG PO ×2 (12:50→20:24)
[2024-04-24] MEDS: RIVAROXABAN 20 MG TABLET PO (16:40)
--- NOTE | 2024-04-24 17:11 | ECHO_ITS ---
Patient Info Name: Melina Krishnan Age: 68 years : 1955 Gender: Female Ht: 63 in Wt: 128 lbs BSA: 1.61 m2 HR: 58 bpm BP: 153 / 94 mmHg Technical Quality: Fair Exam Date: 04/24/2024 12:03 PM Exam Location: Echo Lab Patient Status: Inpatient Admit Date: 04/23/2024 Staff Ordering Physician: Aracelis Maldonado MD [address] Operator: Jorge L Griffith RDCS Attending Provider: Aracelis Maldonado MD Exam Type: CA echo doppler color flow Study Info Indications - SYNCOPE Complete two-dimensional, color flow and Doppler transthoracic echocardiogram is performed. Summary 1. Complete two-dimensional, color flow and Doppler transthoracic echocardiogram is performed. 2. There is normal biventricular systolic function. 3. There is no significant valvular disease. Left Ventricle The left ventricle is normal in size and systolic function. The left ventricular serna are mildly thickened. The left ventricular ejection fraction is visually estimated to be 60-65%. Right Ventricle The right ventricle is normal in size and systolic function. Left Atria The left atrium is normal size. Right Atria The right atrium is normal size. Atrial Septum The atrial septum visually appears intact. Aortic Valve The aortic valve is trileaflet and opens well. There is no aortic regurgitation. Pulmonic Valve The pulmonic valve is not well visualized. Mitral Valve The mitral valve is normal. There is no significant mitral regurgitation in this study. Tricuspid Valve The tricuspid valve is normal. There is trace tricuspid regurgitation. Pericardium/Pleural Pericardium is normal in appearance with no evidence for significant pericardial effusion. Inferior Vena Cava Normal inferior vena cava with >50% collapse upon inspiration consistent with normal right atrial pressure, 3 mmHg. Normal inferior vena cava with >50% collapse upon inspiration consistent with normal right atrial pressure, 3 mmHg. Aorta The aortic root at the level of the sinus of Valsalva measures 2.7 cm in diameter. Left Ventricular Outflow Tract Name Value Normal LVOT 2D LVOT Diameter 1.6 cm LVOT Doppler LVOT Peak Gradient 4 mmHg LVOT Mean Gradient 3 mmHg LVOT VTI 30 cm LVOT VTI/AV VTI Ratio 1.0 LVOT Stroke Volume 63 ml LVOT CO 3.8 l/min LVOT CI 2.4 l/min/m2 Pulmonic Valve Name Value Normal RVOT Doppler RVOT Peak Gradient 2 mmHg PV Doppler PV Peak Gradient 1 mmHg Mitral Valve Name Value Normal MV Doppler MV Decel Armstrong 381 cm/s2 MV PHT 44 ms MV Area (PHT) 5.0 cm2 4.0-5.0 MV Diastolic Function MV E Peak Velocity 58 cm/s MV A Peak Velocity 82 cm/s MV E/A 0.7 MV Decel Time 153 ms MV Annular TDI MV E/e' (Septal) 6.2 <=8.0 MV E/e' (Lateral) 5.0 <=8.0 MV E/e' (Average) 5.6 Tricuspid Valve Name Value Normal Estimated PAP/RSVP RA Pressure 3 mmHg <=5 Aorta Name Value Normal Ascending Aorta Ao Root Diameter (MM) 2.6 cm Ao Root Diam Index (MM) 1.6 cm/m2 Aortic Valve Name Value Normal AV Doppler AV Peak Velocity 132 cm/s AV Peak Gradient 7 mmHg AV Mean Gradient 4 mmHg AV VTI 30 cm AV Area (Cont Eq VTI) 2.1 cm2 >=3.0 AV Area (Cont Eq Jack) 1.7 cm2 AV Regurgitation 2D LVOT Area 2.1 cm2 Ventricles Name Value Normal LV Dimensions 2D/MM IVS Diastolic Thickness (2D) 1.3 cm 0.6-1.0 LVID Diastole (2D) 3.9 cm 3.8-5.2 LVIW Diastolic Thickness (2D) 1.0 cm 0.6-0.9 LVID Systole (2D) 2.3 cm 2.2-3.5 LVOT Diameter 1.6 cm LV Mass (2D Cubed) 150.94 g 67.00-162.00 LV Mass Index (2D Cubed) 94 g/m2 43-95 Relative Wall Thickness (2D) 0.54 LV Fractional Shortening/Ejection Fraction 2D/MM LV Fractional Shortening (2D) 40 % 27-45 LV EF (2D Teicholz) 71 % 54-74 LV Diastolic Volume (4C MOD) 69 ml LV EF (4C MOD) 61 % LV Diastolic Volume (2C MOD) 59 ml LV EF (2C MOD) 74 % LV Diastolic Volume (BP MOD) 66 ml 46-106 LV Diastolic Volume Index (BP MOD) 41 ml/m2 29-61 LV Systolic Volume (BP MOD) 20 ml 14-42 LV Systolic Volume Index (BP MOD) 13 ml/m2 8-24 LV EF (BP MOD) 69 % 54-74 LV Diastolic Length (4C) 7.0 cm LV Systolic Length (4C) 5.9 cm LV Stroke Volume (4C MOD) 42 ml Atria Name Value Normal LA Dimensions LA Dimension (MM) 3.2 cm 2.7-3.8 LA Volume (4C A-L) 40 ml LA Volume (BP A-L) 35 ml RA Dimensions RA Area (4C) 19.3 cm2 <=18.0 Report Signatures
[2024-04-25] VITALS (12 sets, daily range): BP systolic 134–188; BP diastolic 67–105; PULSE 54–82; RESP 17–18; TEMP 36.4–37.1; O2SAT 98–100
[2024-04-25] MEDS: hydroCHLOROthiazide 25 MG TABLET PO (09:38)
[2024-04-25] MEDS: CHOLECALCIFEROL 1,000 UNITS TABLET 2000 UNITS PO (09:38)
[2024-04-25] MEDS: METOPROLOL SUCCINATE EXT REL 25 MG TABCR PO (09:38)
[2024-04-25] MEDS: MAGNESIUM OXIDE 400 MG TABLET PO (09:38)
[2024-04-25] MEDS: oxyBUTYnin CHLORIDE XL 5 MG TAB.ER.24 10 MG PO (09:38)
[2024-04-25] MEDS: lisinopriL 20 MG TABLET PO (09:38)
[2024-04-25] MEDS: OSELTAMIVIR PHOSPHATE 75 MG CAPSULE PO ×2 (09:39→20:54)
[2024-04-25] MEDS: CALCIUM/VITAMIN D 500 MG/5 MCG (200 I.U.) TABLET 1000 MG PO (09:39)
[2024-04-25] MEDS: ACETAMINOPHEN 325 MG TABLET 650 MG PO ×2 (09:39→20:54)
--- NOTE | 2024-04-25 10:59 | P.PNIM_ITS ---
Progress Note: A&P Assessment and Plan (1) Influenza: Code(s): J11.1 - Influenza due to unidentified influenza virus with other respiratory manifestations Status: Acute Assessment and Plan: Patient improving, continue current treatment possible discharge in the morning. (2) General weakness: Code(s): R53.1 - Weakness Status: Acute Assessment and Plan: Start physical therapy. (3) Hyponatremia: Code(s): E87.1 - Hypo-osmolality and hyponatremia Status: Acute Assessment and Plan: Stable, continue current treatment (4) Dehydration: Code(s): E86.0 - Dehydration Status: Acute Assessment and Plan: Increase po fluid intake (5) Syncope: Code(s): R55 - Syncope and collapse Status: Acute Assessment and Plan: Stable, continue current treatment monitor closely. (6) Paroxysmal A-fib: Code(s): I48.0 - Paroxysmal atrial fibrillation Status: Acute Assessment and Plan: Stable on current medication, continue current treatment. Plan Syncope Possible related also static hypotension, vasovagal syncope Patient fell on left forehead, patient has ecchymosis of left periorbital region Patient denies vision change, focal weakness CT head shows no acute intracranial issues no fracture of cervical spine CT abdomen pelvis shows no posttraumatic findings Place patient on telemetry monitoring Pending echocardiogram Orthostatic test: Negative Fall precaution Neuro check Paroxysmal AFib Now patient is sinus rhythm Continue Eliquis 20 mg daily p.o. Continue metoprolol 25 mg daily p.o. Essential hypertension Continue lisinopril 20 mg daily p.o. Resume hydrochlorothiazide 25 mg daily Blood pressure is uncontrolled, start hydralazine IV p.r.n. Hyponatremia, dehydration Likely secondary to diarrhea poor intake Received fluid resuscitation in the ED, Continue normal saline IV 75 mL/hour 04/24 corrected today dc iv fluid Med discharge patient in 1-2 days Subjective Date/time seen: 04/25/24 10:59 Interval history: Patient was seen during the morning rounds today. Patient is feeling better today. No shortness of breath or chest pain. No abdominal pain, nausea, no vomiting. Mood stable. Review of Systems Review of Systems: ROS negative except above Exam Narrative: GENERAL: Pleasant, in no acute distress. Well-nourished. - EYES: EOMI. Anicteric. - HENT: Dry mucous membranes. ecchymosi s of left periorbital region - LUNGS: Clear to auscultation bilateral ly, no wheezing, rhonchi, or rales. - CARDIOVASCULAR: Regular rate and rhyth m. No murmur. No JVD. - ABDOMEN: Soft, non-tender and non-dist ended. No palpable masses. - EXTREMITIES: No edema. Peripheral puls es 2+. Non-tender. - NEUROLOGIC: No focal neurological defi cits. CN II-XII grossly intact. General weakness - PSYCHIATRIC: Awake, Alert and oriented x 3. Appropriate mood and affect. - SKIN: No rashes or lesions. Warm. - LYMPH: No cervical lymphadenopathy. Objective Data Vital Signs Vital Signs: Vital Signs - 24 hr 04/24/24 12:00 04/24/24 14:00 04/24/24 16:00 Temperature 36.2 C L Pulse Rate 66 67 77 Respiratory Rate 16 Blood Pressure 165/84 H Pulse Oximetry 99 Oxygen Delivery 04/24/24 20:00 04/24/24 20:00 04/24/24 20:29 Temperature 36.7 C Pulse Rate 65 65 Respiratory Rate 18 Blood Pressure 149/91 H Pulse Oximetry 90 Oxygen Delivery Room Air 04/24/24 20:30 04/24/24 20:30 04/24/24 22:00 Temperature 36.7 C 36.7 C 36.6 C Pulse Rate 74 99 68 Respiratory Rate 18 18 18 Blood Pressure 163/86 H 162/97 H 135/84 Pulse Oximetry 100 95 97 Oxygen Delivery 04/25/24 00:00 04/25/24 04:00 04/25/24 06:00 Temperature 37.1 C Pulse Rate 56 L 54 L 74 Respiratory Rate 18 Blood Pressure 134/67 Pulse Oximetry 100 Oxygen Delivery 04/25/24 08:00 04/25/24 09:38 04/25/24 10:12 Temperature Pulse Rate 58 L 74 67 Respiratory Rate 17 17 Blood Pressure 188/89 H 171/98 H Pulse Oximetry 100 100 Oxygen Delivery 04/25/24 10:13 Temperature Pulse Rate 72 Respiratory Rate 17 Blood Pressure 166/105 H Pulse Oximetry 100 Oxygen Delivery Intake/Output Intake/Output: Intake & Output 04/22/24 04/23/24 04/24/24 04/25/24 23:59 23:59 23:59 23:59 Intake Total 1999 3816 660 Output Total Balance 1899 2458 660 Meds/Results Medications: Active Medications Generic Name Dose Route Start Last Admin Trade Name Freq PRN Reason Stop Dose Admin Acetaminophen 650 mg 04/24/24 12:02 04/25/24 09:39 Acetaminophen 325 Mg Tablet PO 650 mg Q6H PRN Administration Mild Pain (1-3) or Fever Calcium Carbonate 1,000 mg 04/24/24 09:00 04/25/24 09:39 Calcium/Vitamin D 500 Mg/5 Mcg (200 I.U.) Tablet PO 1,000 mg QAM JUAN PABLO Administration Hydralazine HCl 10 mg 04/24/24 09:59 Hydralazine Hcl 20 Mg/Ml Vial IV PUSH Q6H PRN Blood Pressure - High Hydrochlorothiazide 25 mg 04/24/24 09:00 04/25/24 09:38 Hydrochlorothiazide 25 Mg Tablet PO 25 mg DAILY JUAN PABLO Administration Lisinopril 20 mg 04/23/24 17:15 04/25/24 09:38 Lisinopril 20 Mg Tablet PO 20 mg QAM JUAN PABLO Administration Magnesium Oxide 400 mg 04/24/24 09:00 04/25/24 09:38 Magnesium Oxide 400 Mg Tablet PO 400 mg DAILY JUAN PABLO Administration Metoprolol Succinate 25 mg 04/24/24 09:00 04/25/24 09:38 Metoprolol Succinate Ext Rel 25 Mg Tabcr PO 25 mg DAILY JUAN PABLO Administration Oseltamivir Phosphate 75 mg 04/23/24 21:00 04/25/24 09:39 Oseltamivir Phosphate 75 Mg Capsule PO 04/28/24 20:59 75 mg Q12HR JUAN PABLO Administration Oxybutynin Chloride 10 mg 04/24/24 09:00 04/25/24 09:38 Oxybutynin Chloride Xl 5 Mg Tab.Er.24 PO 10 mg DAILY JUAN PABLO Administration Oxycodone/Acetaminophen 1 tablet 04/24/24 12:02 Oxycodone/Acetaminophen (*Crx) 5-325 Mg Tablet PO Q6HR PRN Pain Rated 4-6 Perflutren Lipid Microsphere 0 ml 04/23/24 17:11 Perflutren Lipid Microspheres 1.5 Ml Vial Diluted To 10 Ml Total Volume IV PUSH 04/26/24 17:11 ONCE PRN adequate visualization Protocol Rivaroxaban 20 mg 04/24/24 17:00 04/24/24 16:40 Rivaroxaban 20 Mg Tablet PO 20 mg DAILY@1700 JUAN PABLO Administration Vitamin D 2,000 units 04/24/24 09:00 04/25/24 09:38 Cholecalciferol 1,000 Units Tablet PO 2,000 units DAILY JUAN PABLO Administration Radiology Results: ITS Impressions Head CT 04/23/24 12:51 IMPRESSION: 1. Normal brain. Cervical Spine CT 04/23/24 12:53 IMPRESSION: 1. No fracture. 2. Severe cervical spondylosis. Chest/Abdomen/Pelvis/Spine CT 04/23/24 12:56 IMPRESSION: 1. No posttraumatic findings. Chest X-Ray 04/23/24 13:13 Impression: Normal chest. Elbow X-Ray 04/23/24 13:13 Impression: Unremarkable radiographs. Wrist X-Ray 04/23/24 13:16 Impression: Mild degenerative change of the first CMC joint.
[2024-04-25] MEDS: RIVAROXABAN 20 MG TABLET PO (17:21)
[2024-04-26] VITALS: PULSE 72
[2024-04-26 04:00] VITALS: PULSE 54
[2024-04-26 04:37] VITALS: BP 140/77; PULSE 78; RESP 18; TEMP 36.3; O2SAT 96
[2024-04-26] MEDS: ACETAMINOPHEN 325 MG TABLET 650 MG PO (06:28)
--- NOTE | 2024-04-26 07:57 | P.PNIM_ITS ---
Progress Note: A&P Assessment and Plan (1) Influenza: Code(s): J11.1 - Influenza due to unidentified influenza virus with other respiratory manifestations Status: Acute Assessment and Plan: Patient improving, continue current treatment possible discharge in the morning. (2) General weakness: Code(s): R53.1 - Weakness Status: Acute Assessment and Plan: Start physical therapy. (3) Hyponatremia: Code(s): E87.1 - Hypo-osmolality and hyponatremia Status: Acute Assessment and Plan: Stable, continue current treatment (4) Dehydration: Code(s): E86.0 - Dehydration Status: Acute Assessment and Plan: Increase po fluid intake (5) Syncope: Code(s): R55 - Syncope and collapse Status: Acute Assessment and Plan: Stable, continue current treatment monitor closely. (6) Paroxysmal A-fib: Code(s): I48.0 - Paroxysmal atrial fibrillation Status: Acute Assessment and Plan: Stable on current medication, continue current treatment. Plan Syncope Possible related also static hypotension, vasovagal syncope Patient fell on left forehead, patient has ecchymosis of left periorbital region Patient denies vision change, focal weakness CT head shows no acute intracranial issues no fracture of cervical spine CT abdomen pelvis shows no posttraumatic findings Place patient on telemetry monitoring echocardiogram 1. Complete two-dimensional, color flow and Doppler transthoracic echocardiogram is performed. 2. There is normal biventricular systolic function. 3. There is no significant valvular disease. Orthostatic test: Negative Fall precaution Neuro check: No focal deficit of abnormal sensation Influenza a infection Continue Tamiflu for total 5 days Paroxysmal AFib Now patient is sinus rhythm Continue Eliquis 20 mg daily p.o. Continue metoprolol 25 mg daily p.o. Essential hypertension Continue lisinopril 20 mg daily p.o. Resume hydrochlorothiazide 25 mg daily Blood pressure is uncontrolled, start hydralazine IV p.r.n. Hyponatremia, dehydration Likely secondary to diarrhea poor intake Received fluid resuscitation in the ED, Continue normal saline IV 75 mL/hour 2/6 corrected today dc iv fluid Patient will be discharged home today, outpatient physical therapy arranged by Case adult care provider Subjective Date/time seen: 04/26/24 07:57 Interval history: I saw examined the patient today, patient feels comfortable, still has some general weakness, denies chest pain shortness breast, palpitation. Labs reviewed, leukopenia resolved, white blood cell 5.0 Exam Narrative: GENERAL: Pleasant, in no acute distress. Well-nourished. - EYES: EOMI. Anicteric. - HENT: Dry mucous membranes. ecchymosi s of left periorbital region - LUNGS: Clear to auscultation bilateral ly, no wheezing, rhonchi, or rales. - CARDIOVASCULAR: Regular rate and rhyth m. No murmur. No JVD. - ABDOMEN: Soft, non-tender and non-dist ended. No palpable masses. - EXTREMITIES: No edema. Peripheral puls es 2+. Non-tender. - NEUROLOGIC: No focal neurological defi cits. CN II-XII grossly intact. General weakness - PSYCHIATRIC: Awake, Alert and oriented x 3. Appropriate mood and affect. - SKIN: No rashes or lesions. Warm. - LYMPH: No cervical lymphadenopathy. Objective Data Vital Signs Vital Signs: Vital Signs - 24 hr 04/25/24 08:00 04/25/24 08:00 04/25/24 08:00 Temperature Pulse Rate 58 L 82 Respiratory Rate 17 Blood Pressure 188/89 H Pulse Oximetry 100 Oxygen Delivery Room Air 04/25/24 09:38 04/25/24 10:12 04/25/24 10:13 Temperature Pulse Rate 74 67 72 Respiratory Rate 17 17 Blood Pressure 171/98 H 166/105 H Pulse Oximetry 100 100 Oxygen Delivery 04/25/24 12:00 04/25/24 14:00 04/25/24 16:00 Temperature 97.5 F L Pulse Rate 61 65 75 Respiratory Rate 18 Blood Pressure 148/90 H Pulse Oximetry 98 Oxygen Delivery 04/25/24 20:00 04/25/24 20:00 04/25/24 20:09 Temperature 97.9 F Pulse Rate 66 61 Respiratory Rate 18 Blood Pressure 141/79 H Pulse Oximetry 100 Oxygen Delivery Room Air 04/26/24 00:00 04/26/24 04:00 04/26/24 04:37 Temperature 97.4 F L Pulse Rate 72 54 L 78 Respiratory Rate 18 Blood Pressure 140/77 Pulse Oximetry 96 Oxygen Delivery Intake/Output Intake/Output: Intake & Output 04/23/24 04/24/24 04/25/24 04/26/24 23:59 23:59 23:59 23:59 Intake Total 1999 2458 980 200 Output Total 100 Balance 1899 2458 980 200 Meds/Results Medications: Active Medications Generic Name Dose Route Start Last Admin Trade Name Freq PRN Reason Stop Dose Admin Acetaminophen 650 mg 04/24/24 12:02 04/26/24 06:28 Acetaminophen 325 Mg Tablet PO 650 mg Q6H PRN Administration Mild Pain (1-3) or Fever Calcium Carbonate 1,000 mg 04/24/24 09:00 04/25/24 09:39 Calcium/Vitamin D 500 Mg/5 Mcg (200 I.U.) Tablet PO 1,000 mg QAM JUAN PABLO Administration Hydralazine HCl 10 mg 04/24/24 09:59 Hydralazine Hcl 20 Mg/Ml Vial IV PUSH Q6H PRN Blood Pressure - High Hydrochlorothiazide 25 mg 04/24/24 09:00 04/25/24 09:38 Hydrochlorothiazide 25 Mg Tablet PO 25 mg DAILY JUAN PABLO Administration Lisinopril 20 mg 04/23/24 17:15 04/25/24 09:38 Lisinopril 20 Mg Tablet PO 20 mg QAM [facility] Administration Magnesium Oxide 400 mg 04/24/24 09:00 04/25/24 09:38 Magnesium Oxide 400 Mg Tablet PO 400 mg DAILY JUAN PABLO Administration Metoprolol Succinate 25 mg 04/24/24 09:00 04/25/24 09:38 Metoprolol Succinate Ext Rel 25 Mg Tabcr PO 25 mg DAILY [facility] Administration Oseltamivir Phosphate 75 mg 04/23/24 21:00 04/25/24 20:54 Oseltamivir Phosphate 75 Mg Capsule PO 04/28/24 20:59 75 mg Q12HR [facility] Administration Oxybutynin Chloride 10 mg 04/24/24 09:00 04/25/24 09:38 Oxybutynin Chloride Xl 5 Mg Tab.Er.24 PO 10 mg DAILY [facility] Administration Oxycodone/Acetaminophen 1 tablet 04/24/24 12:02 Oxycodone/Acetaminophen (*Crx) 5-325 Mg Tablet PO Q6HR PRN Pain Rated 4-6 Perflutren Lipid Microsphere 0 ml 04/23/24 17:11 Perflutren Lipid Microspheres 1.5 Ml Vial Diluted To 10 Ml Total Volume IV PUSH 04/26/24 17:11 ONCE PRN adequate visualization Protocol Rivaroxaban 20 mg 04/24/24 17:00 04/25/24 17:21 Rivaroxaban 20 Mg Tablet PO 20 mg DAILY@1700 JUAN PABLO Administration Vitamin D 2,000 units 04/24/24 09:00 04/25/24 09:38 Cholecalciferol 1,000 Units Tablet PO 2,000 units DAILY JUAN PABLO Administration Radiology Results: ITS Impressions Head CT 04/23/24 12:51 IMPRESSION: 1. Normal brain. Cervical Spine CT 04/23/24 12:53 IMPRESSION: 1. No fracture. 2. Severe cervical spondylosis. Chest/Abdomen/Pelvis/Spine CT 04/23/24 12:56 IMPRESSION: 1. No posttraumatic findings. Chest X-Ray 04/23/24 13:13 Impression: Normal chest. Elbow X-Ray 04/23/24 13:13 Impression: Unremarkable radiographs. Wrist X-Ray 04/23/24 13:16 Impression: Mild degenerative change of the first CMC joint.
[2024-04-26 08:00] VITALS: BP 140/77; PULSE 78; RESP 18; TEMP 36.3; O2SAT 96
--- NOTE | 2024-04-26 08:02 | P.DS_ITS ---
DS: Admitting Diagnosis Discharge Date 04/26/24 Admitting Diagnosis (1) Influenza: Code(s): J11.1 - Influenza due to unidentified influenza virus with other respiratory manifestations Status: Acute Assessment and Plan: Patient improving, continue current treatment possible discharge in the morning. (2) General weakness: Code(s): R53.1 - Weakness Status: Acute Assessment and Plan: Start physical therapy. (3) Hyponatremia: Code(s): E87.1 - Hypo-osmolality and hyponatremia Status: Acute Assessment and Plan: Stable, continue current treatment (4) Dehydration: Code(s): E86.0 - Dehydration Status: Acute Assessment and Plan: Increase po fluid intake (5) Syncope: Code(s): R55 - Syncope and collapse Status: Acute Assessment and Plan: Stable, continue current treatment monitor closely. (6) Paroxysmal A-fib: Code(s): I48.0 - Paroxysmal atrial fibrillation Status: Acute Assessment and Plan: Stable on current medication, continue current treatment. DS: Discharge Diagnosis Discharge Diagnosis (1) Influenza: Code(s): J11.1 - Influenza due to unidentified influenza virus with other respiratory manifestations Status: Acute Assessment and Plan: Patient improving, continue current treatment possible discharge in the morning. (2) General weakness: Code(s): R53.1 - Weakness Status: Acute Assessment and Plan: Start physical therapy. (3) Hyponatremia: Code(s): E87.1 - Hypo-osmolality and hyponatremia Status: Acute Assessment and Plan: Stable, continue current treatment (4) Dehydration: Code(s): E86.0 - Dehydration Status: Acute Assessment and Plan: Increase po fluid intake (5) Syncope: Code(s): R55 - Syncope and collapse Status: Acute Assessment and Plan: Stable, continue current treatment monitor closely. (6) Paroxysmal A-fib: Code(s): I48.0 - Paroxysmal atrial fibrillation Status: Acute Assessment and Plan: Stable on current medication, continue current treatment. DS: Summary Hospital Course Hospital Course: Per H&P, 68 years old lady with history of persistent AFib on Xarelto, hypertension, present ED with a chief complaint of general weakness, cough syncope. Patient has been not feeling well in past few more days, patient went to [place] for vacation on Sunday. Patient had a cough, general weakness, and also had diarrhea. Patient stayed in the hotel. On Sunday, patient went to bathroom for shower, patient passed out and fell on the left forehead. Before she passed out, patient felt lightheaded, patient denied chest pain, palpitation, abdomen pain, focal weakness vision change. When patient woke up, patient was not confused. Patient went to local hospital for evaluation treatment. Patient was still feel weak therefore patient flew back yesterday. Today patient still had general weakness, intermittent lightheadedness with stent upon walking. Denies headache, vision change, focal weakness, fever, chills, photophobia, abdomen pain, nausea vomiting. Patient had 1 loose stool today. Patient denies black emesis, bloody stools. Upon arrival with the ED, patient is afebrile above pressure stable, pulse ox 100% on room air, labs showed leukopenia 3700 chemistry showed hyponatremia 134, elevated BUN creatinine ratio 23/0.62. UA unremarkable, respiratory pathogen PCR is positive of influenza a, chest x-ray shows no acute cardiopulmonary issues. EKG showed sinus rhythm, 65, no specific ST or T-wave changes The following med issues have been addressed during hospitalization Syncope Possible related also static hypotension, vasovagal syncope Patient fell on left forehead, patient has ecchymosis of left periorbital region Patient denies vision change, focal weakness CT head shows no acute intracranial issues no fracture of cervical spine CT abdomen pelvis shows no posttraumatic findings Place patient on telemetry monitoring, placement assistant does not show significant arrhythmia echocardiogram 1. Complete two-dimensional, color flow and Doppler transthoracic echocardiogram is performed. 2. There is normal biventricular systolic function. 3. There is no significant valvular disease. Orthostatic test: Negative Fall precaution Neuro check: No focal deficit of abnormal sensation Influenza a infection Continue Tamiflu for total 5 days Paroxysmal AFib Now patient is sinus rhythm Continue Eliquis 20 mg daily p.o. Continue metoprolol 25 mg daily p.o. Essential hypertension Continue lisinopril 20 mg daily p.o. Resume hydrochlorothiazide 25 mg daily Blood pressure is uncontrolled, start hydralazine IV p.r.n. Hyponatremia, dehydration Likely secondary to diarrhea poor intake Received fluid resuscitation in the ED, Continue normal saline IV 75 mL/hour 2/6 corrected today dc iv fluid Patient will be discharged home today, outpatient physical therapy arranged by Case daytime caregiver Time Spent with Patient Time attestation: Total time spent providing and/or coordinating discharge services: Exam Narrative: GENERAL: Pleasant, in no acute distress. Well-nourished. - EYES: EOMI. Anicteric. - HENT: Dry mucous membranes. ecchymosi s of left periorbital region - LUNGS: Clear to auscultation bilateral ly, no wheezing, rhonchi, or rales. - CARDIOVASCULAR: Regular rate and rhyth m. No murmur. No JVD. - ABDOMEN: Soft, non-tender and non-dist ended. No palpable masses. - EXTREMITIES: No edema. Peripheral puls es 2+. Non-tender. - NEUROLOGIC: No focal neurological defi cits. CN II-XII grossly intact. General weakness - PSYCHIATRIC: Awake, Alert and oriented x 3. Appropriate mood and affect. - SKIN: No rashes or lesions. Warm. - LYMPH: No cervical lymphadenopathy. Discharge Plan Discharge Attending physician on discharge: Aracelis Maldonado Discharging Clinician: Aracelis Maldonado Anticipated Discharge Date/Time: 04/26/24 11:28 Patient Disposition: Home, Self-Care Activity: as tolerated Diet: as tolerated and heart healthy Patient Instructions: Antibiotic Form, Rivaroxaban (By mouth) Patient Language: Turkmen Stand Alone Forms: General Discharge Information Follow-up/Referrals: UNKNOWN,DOCTOR [Primary Care Provider] - (Patient needs to see primary care doctor in 1 wk) Discharge Medications: New oseltamivir [Tamiflu] 75 mg Capsule 75 mg PO Q12HR Qty: 5 0RF Continued Xarelto 20 mg tablet 20 mg PO DAILY oxybutynin chloride 10 mg tablet extended release 24hr 10 mg PO DAILY lisinopril 20 mg tablet 20 mg PO DAILY hydrochlorothiazide 25 mg tablet 25 mg PO DAILY metoprolol succinate 25 mg tablet extended release 24 hr 25 mg PO DAILY cholecalciferol (vitamin D3) [D3-2000] 50 mcg (2,000 unit) capsule 2,000 unit PO DAILY calcium carbonate-vitamin D3 600 mg-12.5 mcg (500 unit) capsule 2 cap PO DAILY magnesium oxide 400 mg magnesium tablet 400 mg PO DAILY Date of admission: 04/24/24 15:01 Primary Care Provider: UNKNOWN,DOCTOR Admitting Provider: Aracelis Maldonado Attending physician on admission: Aracelis Maldonado Condition: Stable
[2024-04-26 09:07] LABS: Hematocrit 41.4 % (37.0-47.0); Mean Corpuscular HGB Conc 33.8 g/dl (32-36); Mean Corpuscular Hemoglobin 31.4 pg (26-34); Mean Corpuscular Volume 92.8 fl (80-100); Platelet Count Result 208 k/mm3 (150-375); Red Blood Count 4.46 M/mm3 (4.2-5.4); Red Cell Distribution Width 12.8 % (11.5-14.5)
[2024-04-26 09:16] LABS: Anion Gap 9 mmol/L (4-12); Blood Urea Nitrogen 15 mg/dL (7-17); Calcium 9.3 mg/dL (8.4-10.2); Carbon Dioxide 26 mmol/L (22-30); Chloride 102 mmol/L (98-107); Estimated CRCL calculation 66 ml/min; Estimated Glomerular Filt Rate > 60; Glucose 98 mg/dL (65-110); Sodium 137 mmol/L (137-145)
[2024-04-26] MEDS: lisinopriL 20 MG TABLET PO (11:38)
[2024-04-26] MEDS: CALCIUM/VITAMIN D 500 MG/5 MCG (200 I.U.) TABLET 1000 MG PO (11:38)
[2024-04-26] MEDS: CHOLECALCIFEROL 1,000 UNITS TABLET 2000 UNITS PO (11:38)
[2024-04-26] MEDS: MAGNESIUM OXIDE 400 MG TABLET PO (11:38)
[2024-04-26] MEDS: oxyBUTYnin CHLORIDE XL 5 MG TAB.ER.24 10 MG PO (11:38)
[2024-04-26] MEDS: OSELTAMIVIR PHOSPHATE 75 MG CAPSULE PO (11:39)
[2024-04-26] MEDS: hydroCHLOROthiazide 25 MG TABLET PO (11:39)
[2024-04-26] MEDS: METOPROLOL SUCCINATE EXT REL 25 MG TABCR PO (11:39)
== END 2024-04-26 12:54 | disposition home or self-care (01) | DRG 194 ==
LOC: ANHED 16:37 → ANH3MEDSUR 17:13
PROVIDERS: Registered Nurse; Admitting Provider Hospitalist; Emergency Provider Emergency Medicine; Visit Provider Hospitalist
DX: J10.1 Influenza due to other identified influenza virus with other respiratory manifestations (principal); E87.1 Hypo-osmolality and hyponatremia; I48.20 Chronic atrial fibrillation, unspecified; I10 Essential (primary) hypertension; E86.0 Dehydration; R55 Syncope and collapse; Z20.822 Contact with and (suspected) exposure to COVID-19; Z79.01 Long term (current) use of anticoagulants; S00.12XD Contusion of left eyelid and periocular area, subsequent encounter; W18.2XXD Fall in (into) shower or empty bathtub, subsequent encounter
CPT/HCPCS: 36415; 70450; 71046; 71260; 72125; 72129; 72132; 73080; 73110; 74177; 80048; 80053; 80307; 81001; 82077; 82550; 83605; 84443; 84484; 85025; 85027; 85610; 85730; 86850; 86900; 86901; 87637; 93005; 93306; 96361; 96374; 96375; 96376; 99285; A9270; G0378; J1885; J7030; J7120; Q9967